=== PATIENT | male | born 1985 | race Caucasian/White ===

== ENCOUNTER 2016-08-04 13:32 | Inpatient (IN) | payer SELFPAY ==
[2016-08-04] MEDS ORDERED: hydrOXYzine HCL TAB* 50 MG PO ONE ×2 (14:09→19:41)
[2016-08-04 14:32] LABS: Urine Bilirubin Negative (Negative); Urine Glucose Negative (Negative); Urine Nitrite Negative (Negative)
[2016-08-04] MEDS ORDERED: hydrOXYzine HCL TAB* 25 MG ONE (14:44)
[2016-08-04 14:46] LABS: Benzodiazepine Urine Screen None Detected (None Detect)
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
[2016-08-04 15:09] LABS: Hematocrit 45 % (42-52); Hemoglobin 15.4 g/dl (14.0-18.0); Mean Corpuscular HGB Conc 34 g/dl (31-36); Mean Corpuscular Hemoglobin 30 pg (27-31); Mean Corpuscular Volume 88 fL (80-94); Mean Platelet Volume 8 um3 (7.4-10.4); Red Blood Count 5.13 10^6/ul (4.0-5.4); Red Cell Distribution Width 13 % (10.5-15); White Blood Count 10.5 10^3/ul (3.5-10.8)
[2016-08-04 16:10] LABS: ALT 31 U/L (7-52); AST 20 U/L (13-39); Albumin 4.6 g/dL (3.2-5.2); Alkaline Phosphatase 67 U/L (34-104); Anion Gap 11 mmol/L (2-11); BUN/Creatinine Ratio 18.5 (8-20); Blood Urea Nitrogen 22 mg/dL (6-24); CO2 Carbon Dioxide 22 mmol/L (22-32); Calcium 9.8 mg/dL (8.6-10.3); Chloride 103 mmol/L (101-111); EGFR Non-African American 72.3 (>60); Globulin 2.8 g/dL (2-4); Glucose 97 mg/dL (70-100); Potassium 4.2 mmol/L (3.5-5.0); Sodium 136 mmol/L (133-145); Total Protein 7.4 g/dL (6.4-8.9)
[2016-08-04 16:23] LABS: Acetaminophen < 15 mcg/mL; Alcohol < 10 mg/dL (<10); Salicylate < 2.50 mg/dL (<30)
[2016-08-04 16:29] LABS: TSH (Thyroid Stimulating Horm) 1.51 mcIU/mL (0.34-5.60)
[2016-08-04] MEDS ORDERED: Nicotine Inhaler* 10 MG AMP ONE ×2 (21:58→23:46)
[2016-08-04] MEDS ORDERED: Mouth Piece, Nicotine* 1 EACH CARTRIDGE ONE (21:58)
[2016-08-04] MEDS: Nicotine Inhaler* 10 MG AMP INH PRN (23:45)
[2016-08-05] MEDS ORDERED: Mouth Piece, Nicotine* 1 EACH CARTRIDGE INH SCH (00:02)
[2016-08-05] MEDS: hydrOXYzine HCL TAB* 50 MG PO PRN ×2 (08:37→22:23)
[2016-08-05] MEDS ORDERED: QUEtiapine TAB* 25 MG PO ONE (10:00)
[2016-08-05] MEDS ORDERED: LORazepam TAB(*) 1 MG PO ONE ×3 (10:00→21:00)
[2016-08-05] MEDS: Docusate CAP* 100 MG PO SCH ×2 (12:35→20:29)
[2016-08-05] MEDS: Gabapentin CAP(*) 300 MG PO SCH ×2 (12:35→20:29)
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
[2016-08-05] MEDS: Nicotine Inhaler* 10 MG AMP INH PRN (20:29)
[2016-08-05] MEDS ORDERED: QUEtiapine TAB* 25 MG PO SCH (21:00)
[2016-08-06] MEDS: Docusate CAP* 100 MG PO SCH ×2 (09:12→20:53)
[2016-08-06] MEDS: Gabapentin CAP(*) 300 MG PO SCH ×3 (09:12→20:53)
[2016-08-06] MEDS: hydrOXYzine HCL TAB* 50 MG PO PRN ×2 (10:23→18:09)
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
[2016-08-06] MEDS: Nicotine Inhaler* 10 MG AMP INH PRN (18:09)
[2016-08-07] MEDS: Gabapentin CAP(*) 300 MG PO SCH ×3 (08:13→20:52)
[2016-08-07] MEDS: Docusate CAP* 100 MG PO SCH ×2 (08:14→20:52)
[2016-08-07] MEDS: hydrOXYzine HCL TAB* 50 MG PO PRN ×3 (08:15→20:54)
[2016-08-07] MEDS: Nicotine Inhaler* 10 MG AMP INH PRN (16:37)
[2016-08-08] MEDS: Docusate CAP* 100 MG PO SCH ×2 (08:33→20:37)
[2016-08-08] MEDS: Gabapentin CAP(*) 300 MG PO SCH ×3 (08:33→20:25)
[2016-08-08] MEDS: Nicotine Inhaler* 10 MG AMP INH PRN ×2 (09:58→17:02)
--- NOTE | 2016-08-08 18:14 | PN ---
Subjective - Subjective Service Type: 25545 Hosp care 15 min low complexity Subjective: Jourdan reports that he hasbeen doing well and denies any psychiatric or physical health problems including cravings for drugs. Says he is all for rehab. Objective - Appearance Appearance: Well Developed/Nourished Dysmorphic Features: No Hygiene: Normal Grooming: Well Kept - Behavior Psychomotor Activities: Normal Exhibits Abnormal Movement: No - Attitude and Relatedness Attitude and Relatedness: Appropriate Eye Contact: Good - Speech Quality: Unpressured Latencies: Normal Quantity: Appropriate - Mood Patient's Decription of Mood: "Great" - Affect Observed Affect: Non-labile - Thought Process Patient's Thought Process: Coherent, Goal Directed Thought Content: No Passive Wish, No Suicidal Planning, No Homicidal Ideation, No Paranoid Ideation - Sensorium Experiencing Hallucinations: No, Sensorium is Clear Type of Hallucinations: Visual: No, Auditory: No, Command: No - Level of Consciousness Level of Consciousness: Alert Orientation: Yes Intact, Yes Orientated to Time, Yes Orientated to Place, Yes Orientated to Person - Impulse Control Impulse Control: Intact - Insight and Judgement Insight and Judgement: Good - Group Participation Particating in Group Activities: Yes - Medication Management Medication Management Adherence: Yes Assessment - Assessment Merits Inpatient Hospitalization: Pending Safe DC Plan Inpatient DSM-IV Dx: 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 Alcohol use disorder with induced mood symptoms and mild withdrawal. Plan - Plan Treatment Plan: Name: JOURDAN FORBES Birthdate: 1985 [id number] Continued Medication Management: Continue Outpt Medication Medications: Current Medications Device (Nicotine Mouth Piece*) 1 each INH .[facility] Last Admin: 08/05/16 20:29 Dose: 1 each Diphenhydramine HCl (Benadryl Po*) 50 mg PO BEDTIME PRN PRN Reason: INSOMNIA Docusate Sodium (Colace Cap*) 100 mg PO BID [facility] Last Admin: 08/08/16 08:33 Dose: 100 mg Gabapentin (Neurontin Cap(*)) 300 mg PO TID [facility] Last Admin: 08/08/16 14:01 Dose: 300 mg Hydroxyzine HCl (Atarax Tab*) 50 mg PO Q6H PRN PRN Reason: NOT SPECIFIED Last Admin: 08/07/16 20:54 Dose: 50 mg Nicotine (Nicotine Inhaler*) 10 mg INH Q2H PRN PRN Reason: CRAVING Last Admin: 08/08/16 17:02 Dose: 10 mg - Discharge Plan Discharge Plan: Drug/Alcohol Rehab
--- NOTE | 2016-08-09 07:44 | PN ---
Subjective - Subjective Service Type: 04169 Hosp care 15 min low complexity Subjective: Jourdan reports "uplifting mood" and feels "Strong." Says anxiety is controlled with gabapentin and he asks to continue it. He said he remains committed to going to rehab - he has expressed uncertainty as to the expected result, but is open to try. Objective - Appearance Appearance: Well Developed/Nourished Dysmorphic Features: Yes Hygiene: Normal Grooming: Well Kept - Behavior Psychomotor Activities: Normal - Attitude and Relatedness Attitude and Relatedness: Cooperative Eye Contact: Good - Speech Quality: Unpressured Latencies: Normal Quantity: Terse - Mood Patient's Decription of Mood: "Good" - Affect Observed Affect: Non-labile Affect Consistent with: Euthymia - Thought Process Patient's Thought Process: Coherent, Goal Directed Thought Content: No Passive Wish, No Suicidal Planning, No Homicidal Ideation, No Paranoid Ideation - Sensorium Experiencing Hallucinations: No, Sensorium is Clear - Level of Consciousness Level of Consciousness: Alert - Impulse Control Impulse Control: Intact - Insight and Judgement Insight and Judgement: Good Assessment - Assessment Merits Inpatient Hospitalization: To Initiate Treatment, For Ongoing Evaluation , Consolidate Improvements, For Discharge Planning, Pending Safe DC Plan Inpatient DSM-IV Dx: 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 Alcohol use disorder with induced mood symptoms and mild withdrawal. Clinical Impression: 31-year-old, unemployed, undomiciled male with a history of chronic cocaine and alcohol dependence, previous psychiatric hospitalizations, violence and incarceration. He presented with apparent cocaine induced psychosis, with recent paranoid ideation, and reactive preparations for violence. Stabilized here. Clinically improved with cessation of active psychosis and absence of ongoing ideas of harming himself or others. His psychosis appears to have been substance induced, and it cleared rapidly. It put him in a high risk state, and favorably he is open to the idea of treatment and rehab. Medication management will involve gabapentin off label for anxiety and subacute alcohol withdrawal. Disposition plans rehab. Plan - Plan Treatment Plan: Name: JOURDAN FORBES Birthdate: 1985 [id number] Continued Medication Management: Start Medication Medications: Current Medications Device (Nicotine Mouth Piece*) 1 each INH .[facility] Last Admin: 08/05/16 20:29 Dose: 1 each Diphenhydramine HCl (Benadryl Po*) 50 mg PO BEDTIME PRN PRN Reason: INSOMNIA Docusate Sodium (Colace Cap*) 100 mg PO BID [facility] Last Admin: 08/08/16 20:37 Dose: Not Given Gabapentin (Neurontin Cap(*)) 300 mg PO TID [facility] Last Admin: 08/08/16 20:25 Dose: 300 mg Hydroxyzine HCl (Atarax Tab*) 50 mg PO Q6H PRN PRN Reason: NOT SPECIFIED Last Admin: 08/07/16 20:54 Dose: 50 mg Nicotine (Nicotine Inhaler*) 10 mg INH Q2H PRN PRN Reason: CRAVING Last Admin: 08/08/16 17:02 Dose: 10 mg - Discharge Plan Discharge Plan: Drug/Alcohol Rehab
[2016-08-09] MEDS: Gabapentin CAP(*) 300 MG PO SCH ×3 (08:25→20:33)
[2016-08-09] MEDS: Docusate CAP* 100 MG PO SCH ×2 (08:25→20:34)
[2016-08-09] MEDS: Nicotine Inhaler* 10 MG AMP INH PRN ×4 (10:11→20:43)
--- NOTE | 2016-08-09 11:11 | PN ---
[facility]: Group Therapy Note - Service Type Service Type: [id number] Group Psychotherapy - Cognitive Behavioral Group Therapy ( CBT):Patient was attentive and participatory in CBT programming this morning, and remained in good behavioral control. Patient expressed positive insights regarding relevant treatment interventions and goals.
[2016-08-09] MEDS: diPHENhydraMINE PO* 50 MG PO PRN (22:17)
[2016-08-10] MEDS: Gabapentin CAP(*) 300 MG PO SCH ×3 (08:22→20:53)
[2016-08-10] MEDS: Docusate CAP* 100 MG PO SCH ×2 (08:48→20:53)
--- NOTE | 2016-08-10 10:47 | PN ---
Subjective - Subjective Service Type: 53632 Hosp care 15 min low complexity Subjective: Jourdan says he feels ready to engage in rehab - "nervous because (he has) never been clean before." He is pleased to hear about bed tomorrow. Denies distress, affirms he is safe. Says gabapentin really helps, wants to continue it. Objective - Appearance Appearance: Healthy Appearing Hygiene: Normal Grooming: Well Kept - Behavior Psychomotor Activities: Normal - Attitude and Relatedness Attitude and Relatedness: Cooperative Eye Contact: Good - Speech Quality: Unpressured Latencies: Normal Quantity: Appropriate - Mood Patient's Decription of Mood: "Anxious" - Affect Observed Affect: Non-labile Affect Consistent with: Euthymia - Thought Process Patient's Thought Process: Coherent, Disorganized Thought Content: No Passive Wish, No Suicidal Planning, No Homicidal Ideation, No Paranoid Ideation - Sensorium Experiencing Hallucinations: No, Sensorium is Clear - Level of Consciousness Level of Consciousness: Alert - Impulse Control Impulse Control: Intact - Insight and Judgement Insight and Judgement: Fair Assessment - Assessment Merits Inpatient Hospitalization: Consolidate Improvements, For Discharge Planning Inpatient DSM-IV Dx: 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 Alcohol use disorder with induced mood symptoms and mild withdrawal. Clinical Impression: 31-year-old, unemployed, undomiciled male with a history of chronic cocaine and alcohol dependence, previous psychiatric hospitalizations, violence and incarceration. He presented with apparent cocaine induced psychosis, with recent paranoid ideation, and reactive preparations for violence. Stabilized here. Clinically improved with sustained cessation of active psychosis and absence of ongoing ideas of harming himself or others. His psychosis was substance induced, and it cleared rapidly. It put him in a high risk state, and favorably he is open to the idea of treatment and rehab. Medication management will involve gabapentin off label for anxiety and subacute alcohol withdrawal. Disposition plans rehab. tomorrow - pt. accepted at [facility]. Plan - Plan Treatment Plan: Name: JOURDAN FORBES Birthdate: 1985 [id number] Continued Medication Management: Start Medication Medications: Current Medications Device (Nicotine Mouth Piece*) 1 each INH .CARTRIDGE MARIA GUADALUPE Last Admin: 08/05/16 20:29 Dose: 1 each Diphenhydramine HCl (Benadryl Po*) 50 mg PO BEDTIME PRN PRN Reason: INSOMNIA Last Admin: 08/09/16 22:17 Dose: 50 mg Docusate Sodium (Colace Cap*) 100 mg PO BID MARIA GUADALUPE Last Admin: 08/10/16 08:48 Dose: Not Given Gabapentin (Neurontin Cap(*)) 300 mg PO TID MARIA GUADALUPE Last Admin: 08/10/16 08:22 Dose: 300 mg Hydroxyzine HCl (Atarax Tab*) 50 mg PO Q6H PRN PRN Reason: NOT SPECIFIED Last Admin: 08/07/16 20:54 Dose: 50 mg Nicotine (Nicotine Inhaler*) 10 mg INH Q2H PRN PRN Reason: CRAVING Last Admin: 08/09/16 20:43 Dose: 10 mg - Discharge Plan Discharge Plan: Drug/Alcohol Rehab
--- NOTE | 2016-08-10 11:25 | PN ---
[facility]: Group Therapy Note - Service Type Service Type: 11334 Group Psychotherapy - Cognitive Behavioral Group Therapy ( CBT):Patient was attentive and participatory in CBT programming this morning, and remained in good behavioral control. Patient expressed positive insights regarding relevant treatment interventions and goals.
[2016-08-10] MEDS: Nicotine Inhaler* 10 MG AMP INH PRN ×3 (16:01→22:04)
[2016-08-11] MEDS: diPHENhydraMINE PO* 50 MG PO PRN (00:45)
--- NOTE | 2016-08-11 08:00 | DS ---
Subjective - Subjective Service Types: 82913 [facility] Day Mgmt simple under 30 min Discharge Date: 08/11/16 Subjective: Jelani expressed readiness for discharge and rehab. Remains committed to sobriety and counseling. Denies distress, setbacks, perceptual problems, paranoid concerns. Makes no delusional comments. Affirms he is safe unto himself and others, and acknowledge he "absolutely" was not in his intoxication and paranoia. Objective - Appearance Appearance: Healthy Appearing Hygiene: Normal Grooming: Well Kept - Behavior Psychomotor Activities: Normal - Attitude and Relatedness Attitude and Relatedness: Cooperative Eye Contact: Good - Speech Quality: Unpressured Latencies: Normal Quantity: Appropriate - Mood Patient's Decription of Mood: "Good" - Affect Observed Affect: Non-labile Affect Consistent with: Euthymia - Thought Process Patient's Thought Process: Coherent Thought Content: No Passive Wish, No Suicidal Planning, No Homicidal Ideation, No Paranoid Ideation - Sensorium Experiencing Hallucinations: No, Sensorium is Clear - Level of Consciousness Level of Consciousness: Alert - Impulse Control Impulse Control: Intact - Insight and Judgement Insight and Judgement: Good Treatment Course & Assessment Clinical Course & Impression: 31-year-old, unemployed, undomiciled male with a history of chronic cocaine and alcohol dependence, previous psychiatric hospitalizations, violence and incarceration. He presented with apparent cocaine induced psychosis, with recent paranoid ideation, and reactive preparations for violence. 08/11/16 Clear for release - bed to bed taxi transfer to rehabilitation facility ([facility]). Jelani rapidly stabilized here. Clinically, he had dramatic, speedy and complete clinically improvement. He had sustained cessation of all active psychosis and sustained absence of ongoing ideas of harming himself or others. His psychosis was clearly substance induced, and it resolved without direct treatment (had one 50mg dose Seroquel only). His intoxication and resulting psychosis him in a high risk state, and favorably he was open to the idea of treatment and rehab. Medication management involve gabapentin off label for anxiety and subacute alcohol withdrawal; Benadryl if needed for insomnia, nicotine replacement, and colace for constipation. Jelani was accepted at [facility], remained motivated for it, and is medically and psychiatrically appropriate for that treatment setting. Risk concern centered on violence risk with intoxication, psychosis, preparations, and impairment. Violence risk is drastically reduced and assessed as low acutely based on patient's lack of acute impairment, minimal symptom burden and observed benign behavior and ideation. 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 Substance relapse could rapidly and significantly increase acute risk. 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 Alcohol use disorder with induced mood symptoms and mild withdrawal. Discharge Planning - Discharge Planning Discharge Plan: Drug/Alcohol Rehab Recommendations for Continuing Care: Medication Management, Psychotherapy, Substance Abuse Counseling Medications: Current Medications Diphenhydramine HCl (Benadryl Po*) 50 mg PO BEDTIME PRN PRN Reason: INSOMNIA Last Admin: 08/11/16 00:45 Dose: 50 mg Docusate Sodium (Colace Cap*) 100 mg PO BID [facility] Last Admin: 08/10/16 20:53 Dose: 100 mg Gabapentin (Neurontin Cap(*)) 300 mg PO TID [facility] Last Admin: 08/10/16 20:53 Dose: 300 mg Nicotine (Nicotine Inhaler*) 10 mg INH Q2H PRN PRN Reason: CRAVING Last Admin: 08/10/16 22:04 Dose: 10 mg Discharge Planning: Prescriptions provided for discharge [] Yes [x] No Follow up care details as per social work arrangements. Patient response to discharge plan: [x] eager for discharge [] agreeable with discharge plan [] ambivalent about discharge [] disagrees with discharge today
[2016-08-11] MEDS: Gabapentin CAP(*) 300 MG PO SCH (08:06)
[2016-08-11] MEDS: Docusate CAP* 100 MG PO SCH (08:08)
[2016-08-11 08:24] VITALS: BP 140/65
[2016-08-11] MEDS: Nicotine Inhaler* 10 MG AMP INH PRN (08:55)
== END 2016-08-11 10:45 | DRG 897 ==
LOC: ED 13:32 → BSU 08-05 00:01
PROVIDERS: ADMIT Psychiatry & Neurology Psychiatry; ATTEND Psychiatry & Neurology Psychiatry
DX: F14.150 Cocaine abuse with cocaine-induced psychotic disorder with delusions (principal); F10.239 Alcohol dependence with withdrawal, unspecified; F10.24 Alcohol dependence with alcohol-induced mood disorder
CPT/HCPCS: 36415; 80053; 80307; 80320; 80329; 81003; 84443; 85025; 90853; 99222; 99231; 99238; 99406; A9270-GY; G0480

== ENCOUNTER 2017-02-01 17:12 | Inpatient (IN) | payer MEDICAID ==
[2017-02-01 19:04] LABS: Hematocrit 43 % (42-52); Hemoglobin 14.4 g/dl (14.0-18.0); Mean Corpuscular HGB Conc 34 g/dl (31-36); Mean Corpuscular Hemoglobin 30 pg (27-31); Mean Corpuscular Volume 90 fL (80-94); Mean Platelet Volume 9 um3 (7.4-10.4); Red Blood Count 4.75 10^6/ul (4.0-5.4); Red Cell Distribution Width 13 % (10.5-15); White Blood Count 8.6 10^3/ul (3.5-10.8)
[2017-02-01 19:08] LABS: Urine Bilirubin Negative (Negative); Urine Glucose Negative (Negative); Urine Nitrite Negative (Negative)
[2017-02-01 19:15] LABS: ALT 21 U/L (7-52); AST 20 U/L (13-39); Albumin 4.6 g/dL (3.2-5.2); Alkaline Phosphatase 73 U/L (34-104); Anion Gap 4 mmol/L (2-11); BUN/Creatinine Ratio 14.7 (8-20); Blood Urea Nitrogen 17 mg/dL (6-24); CO2 Carbon Dioxide 30 mmol/L (22-32); Calcium 9.2 mg/dL (8.6-10.3); Chloride 105 mmol/L (101-111); EGFR African American 95.7 (>60); EGFR Non-African American 74.4 (>60); Globulin 2.7 g/dL (2-4); Glucose 87 mg/dL (70-100); Potassium 4.1 mmol/L (3.5-5.0); Sodium 139 mmol/L (133-145); Total Protein 7.3 g/dL (6.4-8.9)
[2017-02-01 19:19] LABS: Acetaminophen < 15 mcg/mL; Alcohol < 10 mg/dL (<10); Salicylate < 2.50 mg/dL (<30)
[2017-02-01 19:25] LABS: Benzodiazepine Urine Screen None Detected (None Detect)
[2017-02-01 19:28] LABS: TSH (Thyroid Stimulating Horm) 1.46 mcIU/mL (0.34-5.60)
[2017-02-01] MEDS ORDERED: Nicotine Inhaler* 10 MG AMP INH ONE (20:24)
[2017-02-01] MEDS ORDERED: Mouth Piece, Nicotine* 1 EACH CARTRIDGE ONE (20:26)
[2017-02-01] MEDS ORDERED: Nicotine Inhaler* 10 MG AMP ONE (20:26)
--- NOTE | 2017-02-01 23:11 | ED ---
Kimberlyn Collins Seung-Jae, scribed for Franklin Martínez MD on 02/01/17 at 1925 . Psychiatric Complaint - HPI Summary HPI Summary: Pt is a 31 y/o M comes to the ED p/w fear and anxiety. He states that he is worried of being followed by certain people he believe to be related to the government. Pt states that "men were in cars with tinted windows" watching over him. He also states that he saw a few weeks ago men who "stood in front of a gas pump at a station". Pt also notes that he saw "cameras put in the wrong places" that were supposedly watching him. He states that he feels safe s/p arrival to ED. Pt is currently off his medications. PMhx anxiety, bipolar disorder. - History Of Current Complaint Chief Complaint: EDMentalHealth Time Seen by Provider: 02/01/17 18:31 Hx Obtained From: Patient Onset/Duration: Gradual Onset, Lasting Weeks, Still Present Severity Initially: Moderate Severity Currently: None Character: Fearful, Anxious Aggravating Factor(s): Nothing Alleviating Factor(s): Other - feels safer after coming to ED Associated Signs And Symptoms: Positive: Negative Related History: Positive For: Prior Psychiatric Issues - Anxiety, bipolar disorder - Allergies/Home Medications Allergies/Adverse Reactions: Allergies Allergy/AdvReac Type Severity Reaction Status Date / Time No Known Allergies Allergy Verified 08/07/16 16:02 PMH/Surg Hx/FS Hx/Imm Hx Previously Healthy: No Endocrine/Hematology History: Denies: Hx Thyroid Disease, Hx Anemia Respiratory History: Denies: Hx Asthma, Hx Chronic Bronchitis, Hx Chronic Obstructive Pulmonary Disease (COPD), Hx Cystic Fibrosis, Hx Lung Cancer, Hx Pleural Effusion, Hx Pneumonia, Hx Pulmonary Edema, Hx Pulmonary Embolism, Hx Seasonal Allergies, Hx Sleep Apnea, Other Respiratory Problems/Disorders GI History: Denies: Hx Cirrhosis, Hx Crohn's Disease, Hx Diverticulosis, Hx Gall Bladder Disease, Hx Gastroesophageal Reflux Disease, Hx Gastrointestinal Bleed, Hx Hiatal Hernia, Hx Irritable Bowel, Hx Jaundice, Hx Obstructive Bowel, Hx Ileostomy, Hx Pyloric Stenosis, Hx Ulcer, Other GI Disorders History: Denies: Hx Acute Renal Failure, Hx Benign Prostatic Hyperplasia, Hx Chronic Renal Failure, Hx Dialysis, Hx Kidney Infection, Hx Kidney Stones, Other Problems/Disorders Musculoskeletal History: Denies: Hx Arthritis, Hx Back Problems, Hx Bursitis, Hx Congenital Bone Abnormalities, Hx Fibromyalgia, Hx Gout, Hx Orthopedic Injury, Hx Osteoporosis, Hx Scoliosis, Hx Tendonitis, Other Musculoskeletal History Psychiatric History: Reports: Hx Anxiety, Hx Post Traumatic Stress Disorder, Hx Inpatient Treatment, Hx Bipolar Disorder, Hx of Violent Episodes Against Others , Hx Substance Abuse - crack cocaine, Other Psychiatric Issues/Disorders - admitted for MH issues in the past; not clear of dx Denies: Hx Eating Disorder, Hx Suicide Attempt Infectious Disease History: No Infectious Disease History: Denies: Hx Clostridium Difficile, Hx Hepatitis, Hx Human Immunodeficiency Virus (HIV), Hx of Known/Suspected MRSA, Hx Tuberculosis, Traveled Outside the [place] in Last 30 Days - Family History Known Family History: Positive: Other - pt's sister was suicidal, has depression ,anxiety, and bipolar disease. - Social History Alcohol Use: Daily Alcohol Amount: 2 beers today Hx Substance Use: Yes Substance Use Type: Reports: Cocaine Substance Use Comment - Amount & Last Used: last used 2 days ago Smoking Status (MU): Current Every Day Smoker Type: Cigarettes Review of Systems Negative: Fever Positive: Anxious, Other - fearful of being followed by people All Other Systems Reviewed And Are Negative: Yes Physical Exam Triage Information Reviewed: Yes Vital Signs On Initial Exam: Initial Vitals Temp Pulse Resp BP Pulse Ox 97.7 F 70 17 124/77 98 02/01/17 17:35 02/01/17 17:35 02/01/17 17:35 02/01/17 17:35 02/01/17 17:35 Vital Signs Reviewed: Yes Appearance: Positive: Well-Appearing, No Pain Distress Skin: Positive: Warm, Skin Color Reflects Adequate Perfusion, Dry Head/Face: Positive: Normal Head/Face Inspection Eyes: Positive: Normal ENT: Positive: Normal ENT inspection Neck: Positive: Supple, Nontender Respiratory/Lung Sounds: Positive: Clear to Auscultation, Breath Sounds Present Cardiovascular: Positive: RRR Abdomen Description: Positive: Nontender, Soft Bowel Sounds: Positive: Present Musculoskeletal: Positive: Normal Neurological: Positive: Normal Psychiatric: Positive: Normal - [place] Coma Scale Coma Scale Total: 15 Diagnostics - Vital Signs Vital Signs Temp Pulse Resp BP Pulse Ox 02/01/17 18:42 97.7 F 70 17 124/77 98 02/01/17 17:35 97.7 F 70 17 124/77 98 - Laboratory Lab Results: Lab Results 02/01/17 02/01/17 02/01/17 Range/Units 18:25 18:25 18:33 WBC 8.6 (3.5-10.8) 10^3/ul RBC 4.75 (4.0-5.4) 10^6/ul Hgb 14.4 (14.0-18.0) g/dl Hct 43 (42-52) % MCV 90 (80-94) fL MCH 30 (27-31) pg MCHC 34 (31-36) g/dl RDW 13 (10.5-15) % Plt Count 276 (150-450) 10^3/ul MPV 9 (7.4-10.4) um3 Neut % (Auto) 60.7 (38-83) % Lymph % (Auto) 29.3 (25-47) % Isabella % (Auto) 6.2 (1-9) % Eos % (Auto) 2.8 (0-6) % Baso % (Auto) 1.0 (0-2) % Absolute Neuts (auto) 5.2 (1.5-7.7) 10^3/ul Absolute Lymphs (auto) 2.5 (1.0-4.8) 10^3/ul Absolute Monos (auto) 0.5 (0-0.8) 10^3/ul Absolute Eos (auto) 0.2 (0-0.6) 10^3/ul Absolute Basos (auto) 0.1 (0-0.2) 10^3/ul Absolute Nucleated RBC 0.01 10^3/ul Nucleated RBC % 0.1 Sodium (133-145) mmol/L Potassium (3.5-5.0) mmol/L Chloride (101-111) mmol/L Carbon Dioxide (22-32) mmol/L Anion Gap (2-11) mmol/L BUN (6-24) mg/dL Creatinine (0.67-1.17) mg/dL Est GFR ( Amer) (>60) Est GFR (Non-Af Amer) (>60) BUN/Creatinine Ratio (8-20) Glucose (70-100) mg/dL Calcium (8.6-10.3) mg/dL Total Bilirubin (0.2-1.0) mg/dL AST (13-39) U/L ALT (7-52) U/L Alkaline Phosphatase (34-104) U/L Total Protein (6.4-8.9) g/dL Albumin (3.2-5.2) g/dL Globulin (2-4) g/dL Albumin/Globulin Ratio (1-3) TSH (0.34-5.60) mcIU/mL Urine Color Yellow Urine Appearance Clear Urine pH 5.0 (5-9) Ur Specific [place] 1.028 (1.010-1.030) Urine Protein Negative (Negative) Urine Ketones Negative (Negative) Urine Blood Negative (Negative) Urine Nitrate Negative (Negative) Urine Bilirubin Negative (Negative) Urine Urobilinogen Negative (Negative) Ur Leukocyte Esterase Negative (Negative) Urine Glucose Negative (Negative) Salicylates (<30) mg/dL Urine Opiates Screen None detected (None Detect) Acetaminophen mcg/mL Ur Barbiturates Screen None detected (None Detect) Ur Phencyclidine Scrn None detected (None Detect) Ur Amphetamines Screen None detected (None Detect) U Benzodiazepines Scrn None detected (None Detect) Urine Cocaine Screen Presumptive positive H (None Detect) U Cannabinoids Screen None detected (None Detect) Serum Alcohol (<10) mg/dL 02/01/17 Range/Units 18:33 WBC (3.5-10.8) 10^3/ul RBC (4.0-5.4) 10^6/ul Hgb (14.0-18.0) g/dl Hct (42-52) % MCV (80-94) fL MCH (27-31) pg MCHC (31-36) g/dl RDW (10.5-15) % Plt Count (150-450) 10^3/ul MPV (7.4-10.4) um3 Neut % (Auto) (38-83) % Lymph % (Auto) (25-47) % Isabella % (Auto) (1-9) % Eos % (Auto) (0-6) % Baso % (Auto) (0-2) % Absolute Neuts (auto) (1.5-7.7) 10^3/ul Absolute Lymphs (auto) (1.0-4.8) 10^3/ul Absolute Monos (auto) (0-0.8) 10^3/ul Absolute Eos (auto) (0-0.6) 10^3/ul Absolute Basos (auto) (0-0.2) 10^3/ul Absolute Nucleated RBC 10^3/ul Nucleated RBC % Sodium 139 (133-145) mmol/L Potassium 4.1 (3.5-5.0) mmol/L Chloride 105 (101-111) mmol/L Carbon Dioxide 30 (22-32) mmol/L Anion Gap 4 (2-11) mmol/L BUN 17 (6-24) mg/dL Creatinine 1.16 (0.67-1.17) mg/dL Est GFR ( Amer) 95.7 (>60) Est GFR (Non-Af Amer) 74.4 (>60) BUN/Creatinine Ratio 14.7 (8-20) Glucose 87 (70-100) mg/dL Calcium 9.2 (8.6-10.3) mg/dL Total Bilirubin 0.60 (0.2-1.0) mg/dL AST 20 (13-39) U/L ALT 21 (7-52) U/L Alkaline Phosphatase 73 (34-104) U/L Total Protein 7.3 (6.4-8.9) g/dL Albumin 4.6 (3.2-5.2) g/dL Globulin 2.7 (2-4) g/dL Albumin/Globulin Ratio 1.7 (1-3) TSH 1.46 (0.34-5.60) mcIU/mL Urine Color Urine Appearance Urine pH (5-9) Ur Specific [place] (1.010-1.030) Urine Protein (Negative) Urine Ketones (Negative) Urine Blood (Negative) Urine Nitrate (Negative) Urine Bilirubin (Negative) Urine Urobilinogen (Negative) Ur Leukocyte Esterase (Negative) Urine Glucose (Negative) Salicylates < 2.50 (<30) mg/dL Urine Opiates Screen (None Detect) Acetaminophen < 15 mcg/mL Ur Barbiturates Screen (None Detect) Ur Phencyclidine Scrn (None Detect) Ur Amphetamines Screen (None Detect) U Benzodiazepines Scrn (None Detect) Urine Cocaine Screen (None Detect) U Cannabinoids Screen (None Detect) Serum Alcohol < 10 (<10) mg/dL Result Diagrams: 02/01/17 18:33 02/01/17 18:33 Lab Statement: Any lab studies that have been ordered have been reviewed, and results considered in the medical decision making process. Course/Dx - Course Course Of Treatment: Mr. Swanson came in with delusions about government persecution. While here he stated that he wanted to get a gun and shoot some government agents. We are awaiting evaluation by the psychiatrist at this time. - Differential Dx/Clinical Impression Provider Diagnosis: Psychosis Discharge - Discharge Plan Condition: Stable Disposition: OTHER Discharge Disposition Comment: Pt will be signed out, pending dispo, awaiting [facility] Patient Education Materials: Cocaine Abuse (ED) Referrals: Non Staff,Doctor [Primary Care Provider] - The documentation as recorded by the Kimberlyn cardona Seung-Jae accurately reflects the service I personally performed and the decisions made by me, Franklin Martínez MD.
[2017-02-01] MEDS ORDERED: LORazepam TAB(*) 1 MG PO ONE (23:34)
[2017-02-01] MEDS ORDERED: LORazepam TAB(*) 1 MG ONE (23:35)
[2017-02-02] MEDS ORDERED: Nicotine GUM* 2 MG PO PRN (10:57)
[2017-02-02] MEDS ORDERED: Acetaminophen TAB* 325 MG PO PRN (10:57)
[2017-02-02] MEDS ORDERED: Al Hydrox/Mg Hydrox/Simet LIQ* 30 ML UDC PO PRN (10:57)
[2017-02-02] MEDS: Vitamin THERAPEUTIC TAB PO SCH (11:46)
[2017-02-02] MEDS: Nicotine Inhaler* 10 MG AMP INH PRN (11:47)
[2017-02-02] MEDS: hydrOXYzine HCL TAB* 50 MG PO PRN (11:48)
[2017-02-02] MEDS ORDERED: Mouth Piece, Nicotine* 1 EACH CARTRIDGE INH ONE (12:00)
[2017-02-02] MEDS: Gabapentin CAP(*) 300 MG PO SCH ×2 (13:57→20:59)
--- NOTE | 2017-02-02 19:27 | HP ---
HISTORY AND PHYSICAL: DATE OF ADMISSION: 02/02/17 ATTENDING PHYSICIAN: Larry Juarez MD * (DICTATED BY DAVID COHN NP) JUSTIFICATION FOR ADMISSION: Psychosis with violent ideation and in need of psychiatric stabilization before attending substance use rehab. DEMOGRAPHICS: Jelani is a 31-year-old white male, unemployed, undomiciled with a history of cocaine and alcohol dependence, previous psychiatric hospitalizations , psychosis, violence and incarceration. He was admitted to the mental health unit after voluntarily presenting to the emergency department due to concern about thoughts of killing others. CC: "my paranoia and my bipolar" HISTORY OF PRESENT ILLNESS: Jelani presented voluntarily to the ED with paranoia , believing that the government was watching him and is going to send someone to shoot him or stab him. While in the ED, he was observed to be hypervigilant and expressed concern that his phone was tapped. The patient reports he went off of his medications approximately 4 months ago and has been abusing cocaine and alcohol. The patient is known to this unit as he was admitted in July of this year with a similar presentation. From there, he was referred to [facility] in [place] for substance use rehab. He was there for 2 weeks as this is what insurance allowed. From there, he was transferred to a [place], but was not successful there and did not want to stay. He lived in a homeless penitentiary and began using cocaine and alcohol again. He moved to [place] for a short time and then returned to [place] where his mother lives. 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 While in [place], he suddenly learned there was bench warrant for his arrest in [facility]. He went to [place] to take care of this and then failed to return to [place] due to paranoia and substance use. Today after admission to the unit, I meet with Jelani, I find him lying down on his bed. He is lethargic, but able to rouse. He is agreeable to meet with me in the milieu in a somewhat private area. Jelani reports he is here because of "my paranoia and my bipolar." He is cooperative with interview, but clearly uncomfortable and would prefer to go back to bed. He is able to give me information that I asked for. Jelani states that he has been hearing vague hallucinations, "all different types of stuff." He says that he has visual hallucinations, he sees people that "I know ain't there." He endorses thought broadcasting and states that that is "a big one" in regards to symptoms. As stated above, he presents with hypervigilance, paranoia. He reports poor sleep and being awake up to a few days at a time. He reports decrease in appetite. He endorses isolation from people and also endorses fear that they can read his thoughts. Jelani endorses violent ideation as recent as yesterday. He is unable to identify specific people, these are random thoughts. He denies having any resentment or active thoughts of how to harm people. He states he is concerned about this type of thinking. He denies he has been violent in the recent past. Jelani endorses suicidality. He states that last week he "shot heroin, trying to kill myself." He reports that he does not use heroin otherwise. His drug of choice is cocaine and he uses this intranasally; his last use was approximately 2 days ago. He reports he has not slept for approximately 2 days until being in the emergency department. He denies marijuana use. He reports alcohol use varies and endorses binge drinking. He is unable to clarify further. His alcohol screen in the emergency department was negative. His urine toxicology was positive for cocaine, negative for other substances that were tested. Blood tests were negative for salicylates or acetaminophen. Jelani is appearing to be sincere in his request for help with both substance use and bipolar disorder. He endorses periods of depression as stated above as recent as last week. He presented as depressed and dysphoric. He endorses helplessness and hopelessness. He reports that he is hoping to be referred to a dual diagnosis substance use facility. PAST PSYCHIATRIC HISTORY: This is Jelani's second admission to this unit, first one being in July of this year. According to previous H&P, he was hospitalized 3 times in [place] due to substance use and police escorts to the emergency room. He reports being diagnosed with bipolar disorder approximately a year ago and he recalls that gabapentin was very helpful with both anxiety and alcohol withdrawal and cravings. He recalls that he has been treated with Zyprexa for bipolar disorder with good effect. As stated above, Jelani was treated in [facility] after admission to this facility in July of this year. According to prior records, he started drinking alcohol at age 16 which led to cocaine use. He has had numerous sequelae related to his substance use including leaving high school and being incarcerated for armed robbery. Jelani has tried pills, amphetamines and other various illicit substances. As stated above, his primary drug of choice is cocaine. He denies methamphetamine use. PAST MEDICAL HISTORY: Denies. He reports he has a "lump on his tailbone" and that it is sometimes painful. He declines offer for examination at this time and prefers to defer this until tomorrow after he has had some sleep. MEDICATIONS: He is not on current medications from any outpatient providers. ALLERGIES: No known allergies. FAMILY PSYCHIATRIC HISTORY: Step sister with bipolar disorder and suicide gestures. ABUSE/TRAUMA HISTORY: He denies. LEGAL HISTORY: 5 years in correction for armed robbery, released in 2011. SOCIAL HISTORY: Jelani grew up in [place]. He primarily has lived with his mother. He has 2 step siblings. He does not have contact with anyone in his family other than his mother. He is currently homeless. He left high school and 10th grade and got his GED. 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 He is not currently dating, single, no children. REVIEW OF SYSTEMS: He reports a lump on his tailbone area. PHYSICAL EXAMINATION VITAL SIGNS: Height and weight, 5 feet 11 inches and 200 pounds. Most recent vital signs today, blood pressure 104/72, pulse of 62, respiration rate of 16, temperature 98.5, O2 sat of 100. Physical examination to be completed tomorrow per patient request. MENTAL STATUS EXAM: Jelani is a tall, white male with muscular build, appears stated age. He is casually groomed. Hair is short with a buzz cut. He is wearing long sleeve shirt and sweat pants. He appears stated age. He is alert and oriented x3. His posture is slumped. His head is down. His eye contact is fair. Speech is mumbled. His concentration is poor. His memory is 2/3. Mood is "tired." Affect is restricted. Thought is logical, coherent, some poverty noted. Thought content is positive for auditory and visual hallucinations, paranoia and thought broadcasting. He denies SI, HI, or at this time. His insight is good and that he is seeking treatment voluntarily. Judgment is poor. Impulse control poor. Fund of knowledge fair. ADMISSION LABORATORY STUDIES: CBC normal. CMP normal. TSH and liver enzymes normal. UA was normal. Toxicology positive for cocaine,all other substances are negative. IMPRESSION: Jelani is a 31-year-old male with acute cocaine and alcohol abuse disorder. In reviewing his history, he likely had an onset of bipolar disorder in his early teens, although this was not diagnosed until recently. This has manifested in substance use and legal consequences. Jelani is agreeable to treatment on the mental health unit for psychiatric stabilization with a referral to inpatient substance use treatment. We hope to pursue a dual diagnosis program. He has strong support from his mother, although she lives in [place]. He requires emergency hospitalization due to serous risk for harm for himself and others. ADMISSION DIAGNOSES: [place] I: Cocaine use disorder, severe with induced psychotic symptoms and mood symptoms. Alcohol use disorder with withdrawal and induced mood symptoms, unspecified bipolar disorder. [place] II: Deferred. [place] III: Deferred. [place] IV: Severe psychosocial stressors related to housing financial strain, social isolation and other stressors related to substance use. [place] V: 30. TREATMENT PLAN: Admit to the psychiatric unit. Code status is full, safety checks every 15-minute intervals. Initiate comprehensive group, milieu and individual psychotherapy. Medication management will involve gabapentin 300 mg t.i.d. for off-label use for alcohol withdrawal and cravings, along with benefit for anxiety. We will add olanzapine 10 mg q.h.s. for bipolar disorder, with added benefit of sleep. He will also have hydroxyzine 50 mg p.o. q.6 hours p.r.n. agitation and anxiety. We will obtain a fasting lipid panel in the morning due to the second generation antipsychotic use. Discharge plan will involve coordination with appropriate aftercare. Our intention is to refer the patient bed-to-bed to dual diagnosis rehab and estimated length of stay is 5-7 days. DAVID COHN, LEE [id number]/[facility] #: [id number] HERBIE
[2017-02-02] MEDS: OLANzapine TAB* 10 MG PO SCH (20:59)
[2017-02-02] MEDS ORDERED: diPHENhydraMINE PO* 50 MG PO PRN (21:00)
[2017-02-03] MEDS: Gabapentin CAP(*) 300 MG PO SCH ×3 (08:39→20:18)
[2017-02-03] MEDS: Vitamin THERAPEUTIC TAB PO SCH (08:39)
[2017-02-03 08:59] LABS: HDL Cholesterol 42.4 mg/dL
--- NOTE | 2017-02-03 14:05 | PN ---
Subjective - Subjective Service Type: 06467 Hosp care 25 min moderate complexity Subjective: Jourdan reports improved sleep and energy. He reports sleeping "very much" over the night. He continues to endorse desire for referral to dual diagnosis inpatient treatment. He reports guilt and remorse about returning to the hospital. Jourdan endorses improvement in paranoid delusions but has residual thoughts of "the government giving me drugs to kill me or make me insane." He reports thoughts of the government telling staff to write everything down about him. He reports mild anxiety and that he is trying to use deep breathing for coping. He recalls being on depakote in the past and that this "calmed me down. " Jourdan reports bump near tailbone that is painful at times. With male staff member Parveen Seals present, skin assessment completed. Skin intact, pea-sized nodule palpable. Jourdan denies pain or tenderness. No redness, drainage. Encouraged to request acetaminophen if needed. Objective - Appearance Appearance: Well Developed/Nourished Dysmorphic Features: Yes Hygiene: Normal Grooming: Well Kept - Behavior Psychomotor Activities: Normal Exhibits Abnormal Movement: No - Attitude and Relatedness Attitude and Relatedness: Cooperative Eye Contact: Fair - Speech Quality: Unpressured Latencies: Normal Quantity: Appropriate - Mood Patient's Decription of Mood: "Okay" - Affect Observed Affect: Depressed Affect Consistent with: Dysphoria - Thought Process Patient's Thought Process: Coherent, Goal Directed Thought Content: Yes Paranoid Ideation - persecutory, government conspiracy, No Passive Wish, No Suicidal Planning, No Homicidal Ideation - Sensorium Experiencing Hallucinations: No, Sensorium is Clear Type of Hallucinations: Visual: No, Auditory: No, Command: No - Level of Consciousness Level of Consciousness: Alert Orientation: Yes Intact, Yes Orientated to Time, Yes Orientated to Place, Yes Orientated to Person - Impulse Control Impulse Control: Intact - Insight and Judgement Insight and Judgement: Good - Group Participation Particating in Group Activities: Yes - Medication Management Medication Management Adherence: Yes Assessment - Assessment Merits Inpatient Hospitalization: For Immediate Safety, For Stabilization, For Discharge Planning, Pending Safe DC Plan Inpatient DSM-IV Dx: bipolar II d/o; cocaine use d/o; alcohol use d/o Plan - Plan Treatment Plan: Name: JOURDAN FORBES Birthdate: 1985 [id number] Continue to titrate medications to efficacy. May consider increase in olanzapine and gabapentin. Continue intensive milieu, individual and group therapy. Continued Medication Management: Consider Medication Medications: Current Medications Acetaminophen (Tylenol Tab*) 650 mg PO Q4H PRN PRN Reason: for pain; or Temp >101 F Al Hydrox/Mg Hydrox/Simethicone (Maalox Plus*) 30 ml PO Q4H PRN PRN Reason: INDIGESTION Diphenhydramine HCl (Benadryl Po*) 50 mg PO BEDTIME PRN PRN Reason: INSOMNIA Docusate Sodium (Colace Cap*) 100 mg PO BID PRN PRN Reason: CONSTIPATION Gabapentin (Neurontin Cap(*)) 300 mg PO TID [facility] Last Admin: 02/03/17 13:53 Dose: 300 mg Hydroxyzine HCl (Atarax Tab*) 50 mg PO Q6H PRN PRN Reason: AGITATION/ANXIETY/INSOMNIA Last Admin: 02/02/17 11:48 Dose: 50 mg Multivitamins (Theragran Tab*) 1 tab PO DAILY [facility] Last Admin: 02/03/17 08:39 Dose: 1 tab Nicotine (Nicotine Inhaler*) 10 mg INH Q2H PRN PRN Reason: CRAVING Last Admin: 02/02/17 11:47 Dose: 10 mg Nicotine Polacrilex (Nicotine Gum*) 2 mg PO Q2H PRN PRN Reason: CRAVING Last Admin: 02/03/17 08:39 Dose: 2 mg Olanzapine (Zyprexa Tab*) 10 mg PO BEDTIME [facility] Last Admin: 02/02/17 20:59 Dose: 10 mg - Discharge Plan Discharge Plan: Drug/Alcohol Rehab Outpatient Program: dual diagnosis inpatient
[2017-02-03] MEDS: OLANzapine TAB* 10 MG PO SCH (21:03)
[2017-02-04] MEDS: Gabapentin CAP(*) 300 MG PO SCH ×3 (08:52→20:29)
[2017-02-04] MEDS: Vitamin THERAPEUTIC TAB PO SCH (08:53)
[2017-02-04] MEDS ORDERED: Gabapentin CAP(*) 300 MG PO ONE (11:04)
[2017-02-04] MEDS: hydrOXYzine HCL TAB* 50 MG PO PRN ×2 (11:04→19:04)
[2017-02-04] MEDS: Nicotine Inhaler* 10 MG AMP INH PRN ×2 (11:23→16:28)
--- NOTE | 2017-02-04 11:26 | PN ---
Subjective - Subjective Service Type: 44683 Hosp care 15 min low complexity Subjective: Jourdan has been medication compliant, isolative from peers and staff. He endorses hopelessness and helplessness. He states "I'm tired of going through this. Nothing ever changes." He reports concern that his medications are not effective. Jourdan endorses generalized anxiety and agitation. He reports frustration at not knowing how long he will be hospitalized. Jourdan endorses improvement in paranoid delusions in regards to thought broadcasting and government conspiracies. He reports continued thoughts that "a bullet is going to come through the window." He identifies that this is irrational. Jourdan denies thoughts of harm towards himself or others. Jourdan denies pain or need for medical attention, other than nursing interventions. Objective - Appearance Appearance: Well Developed/Nourished Dysmorphic Features: Yes Hygiene: Normal Grooming: Well Kept - Behavior Psychomotor Activities: Normal Exhibits Abnormal Movement: No - Attitude and Relatedness Attitude and Relatedness: Withdrawn Eye Contact: Fair - Speech Quality: Unpressured Latencies: Normal Quantity: Appropriate - Mood Patient's Decription of Mood: "Anxious" - Affect Observed Affect: Depressed Affect Consistent with: Dysphoria - Thought Process Patient's Thought Process: Coherent Thought Content: Yes Paranoid Ideation, No Passive Wish, No Suicidal Planning, No Homicidal Ideation - Sensorium Experiencing Hallucinations: No, Sensorium is Clear - Level of Consciousness Level of Consciousness: Alert Orientation: Yes Intact, Yes Orientated to Time, Yes Orientated to Place, Yes Orientated to Person - Impulse Control Impulse Control: Intact - Insight and Judgement Insight and Judgement: Fair - Group Participation Particating in Group Activities: No - Medication Management Medication Management Adherence: Yes Assessment - Assessment Merits Inpatient Hospitalization: For Immediate Safety, For Discharge Planning, Pending Safe DC Plan Inpatient DSM-IV Dx: bipolar II d/o; cocaine use d/o; alcohol use d/o Clinical Impression: Jourdan is a 31-year-old male with acute cocaine and alcohol abuse disorder. In reviewing his history, he likely had an onset of bipolar disorder in his early teens, although this was not diagnosed until recently. This has manifested in substance use and legal consequences. Jourdan is agreeable to treatment on the mental health unit for psychiatric stabilization with a referral to inpatient substance use treatment. He is reporting improvement in psychotic features; continues to endorse depressive symptoms and anxiety. He is agreeable to an increase in gabapentin and declines increase in olanzapine. He is encouraged to participate in programming. Discharge planning includes pursuing a dual diagnosis inpatient facility. Plan - Plan Treatment Plan: Name: JOURDAN FORBES Birthdate: 1985 [id number] Continue to titrate medications to efficacy. May consider increase in olanzapine and gabapentin. Continue intensive milieu, individual and group therapy. Continued Medication Management: Different Medication Medications: Current Medications Acetaminophen (Tylenol Tab*) 650 mg PO Q4H PRN PRN Reason: for pain; or Temp >101 F Al Hydrox/Mg Hydrox/Simethicone (Maalox Plus*) 30 ml PO Q4H PRN PRN Reason: INDIGESTION Diphenhydramine HCl (Benadryl Po*) 50 mg PO BEDTIME PRN PRN Reason: INSOMNIA Docusate Sodium (Colace Cap*) 100 mg PO BID PRN PRN Reason: CONSTIPATION Gabapentin (Neurontin Cap(*)) 600 mg PO TID [facility] Hydroxyzine HCl (Atarax Tab*) 50 mg PO Q6H PRN PRN Reason: AGITATION/ANXIETY/INSOMNIA Last Admin: 02/04/17 11:04 Dose: 50 mg Multivitamins (Theragran Tab*) 1 tab PO DAILY [facility] Last Admin: 02/04/17 08:53 Dose: 1 tab Nicotine (Nicotine Inhaler*) 10 mg INH Q2H PRN PRN Reason: CRAVING Last Admin: 02/04/17 11:23 Dose: 10 mg Nicotine Polacrilex (Nicotine Gum*) 2 mg PO Q2H PRN PRN Reason: CRAVING Last Admin: 02/03/17 08:39 Dose: 2 mg Olanzapine (Zyprexa Tab*) 10 mg PO BEDTIME [facility] Last Admin: 02/03/17 21:03 Dose: 10 mg - Discharge Plan Discharge Plan: Drug/Alcohol Rehab Outpatient Program: dual diagnosis inpatient
[2017-02-04] MEDS: Docusate CAP* 100 MG PO PRN (15:32)
[2017-02-04] MEDS: OLANzapine TAB* 10 MG PO SCH (20:30)
[2017-02-05] MEDS: Vitamin THERAPEUTIC TAB PO SCH (08:23)
[2017-02-05] MEDS: Gabapentin CAP(*) 300 MG PO SCH ×3 (08:23→19:36)
[2017-02-05] MEDS: Nicotine Inhaler* 10 MG AMP INH PRN ×3 (08:33→20:56)
[2017-02-05] MEDS ORDERED: cloNIDine TAB* 0.1 MG PO PRN (16:18)
--- NOTE | 2017-02-05 16:26 | PN ---
Subjective - Subjective Service Type: 85024 Hosp care 15 min low complexity Subjective: Patient c/o anxiety and paranoia and is requesting lorazepam for relief of these symptoms. "I keep thinking a bullet is gonna come right through that window and splat me in the head. I had been doing fine up until today. I'm just not doing that good." The patient is disappointed to find out that rehab services are unlikely to accept him if he's on a controlled substance, even as a prn. He notes that his gabapentin was just increased from 300 to 600mg TID. Patient denies SI or HI. Objective - Appearance Appearance: Well Developed/Nourished Dysmorphic Features: No Hygiene: Normal Grooming: Well Kept - Behavior Psychomotor Activities: Normal Exhibits Abnormal Movement: No - Attitude and Relatedness Attitude and Relatedness: Cooperative Eye Contact: Fair - Speech Quality: Unpressured Latencies: Normal Quantity: Appropriate - Mood Patient's Decription of Mood: "Anxious" - Affect Observed Affect: Tense Affect Consistent with: Dysphoria - Thought Process Patient's Thought Process: Coherent Thought Content: Yes Paranoid Ideation, No Passive Wish, No Suicidal Planning, No Homicidal Ideation - Sensorium Experiencing Hallucinations: No, Sensorium is Clear Type of Hallucinations: Visual: No, Auditory: No, Command: No - Level of Consciousness Level of Consciousness: Alert Orientation: Yes Intact, Yes Orientated to Time, Yes Orientated to Place, Yes Orientated to Person - Impulse Control Impulse Control: Tenuous - Insight and Judgement Insight and Judgement: Fair - Group Participation Particating in Group Activities: Yes - Medication Management Medication Management Adherence: Yes Assessment - Assessment Merits Inpatient Hospitalization: For Immediate Safety, For Stabilization Inpatient DSM-IV Dx: bipolar II d/o; cocaine use d/o; alcohol use d/o Clinical Impression: 31 y.o. single, white, homeless, unemployed male with a history of comorbid chemical dependency and bipolarity arrives seeking hospitalization for symptoms of paranoia and violent ideation. Plan - Plan Treatment Plan: Name: JOURDAN FORBES Birthdate: 1985 [id number] Patient awaits placement in an inpatient and/or residential substance abuse setting. We are treating his psychosis with olanzapine and his affective/ anxiety problems with gabapentin. Will add clonidine 0.1mg PO TID as a prn for further anxiety. Continued Medication Management: Start Medication Medications: Current Medications Acetaminophen (Tylenol Tab*) 650 mg PO Q4H PRN PRN Reason: for pain; or Temp >101 F Al Hydrox/Mg Hydrox/Simethicone (Maalox Plus*) 30 ml PO Q4H PRN PRN Reason: INDIGESTION Clonidine HCl (Catapres Tab*) 0.1 mg PO TID PRN PRN Reason: AGITATION/ANXIETY/INSOMNIA Diphenhydramine HCl (Benadryl Po*) 50 mg PO BEDTIME PRN PRN Reason: INSOMNIA Docusate Sodium (Colace Cap*) 100 mg PO BID PRN PRN Reason: CONSTIPATION Last Admin: 02/04/17 15:32 Dose: 100 mg Gabapentin (Neurontin Cap(*)) 600 mg PO TID [facility] Last Admin: 02/05/17 13:15 Dose: 600 mg Hydroxyzine HCl (Atarax Tab*) 50 mg PO Q6H PRN PRN Reason: AGITATION/ANXIETY/INSOMNIA Last Admin: 02/04/17 19:04 Dose: 50 mg Multivitamins (Theragran Tab*) 1 tab PO DAILY [facility] Last Admin: 02/05/17 08:23 Dose: 1 tab Nicotine (Nicotine Inhaler*) 10 mg INH Q2H PRN PRN Reason: CRAVING Last Admin: 02/05/17 13:50 Dose: 10 mg Nicotine Polacrilex (Nicotine Gum*) 2 mg PO Q2H PRN PRN Reason: CRAVING Last Admin: 02/03/17 08:39 Dose: 2 mg Olanzapine (Zyprexa Tab*) 10 mg PO BEDTIME [facility] Last Admin: 02/04/17 20:30 Dose: 10 mg - Discharge Plan Discharge Plan: Drug/Alcohol Rehab
[2017-02-05] MEDS: hydrOXYzine HCL TAB* 50 MG PO PRN (19:35)
[2017-02-05] MEDS: OLANzapine TAB* 10 MG PO SCH (19:36)
[2017-02-06] MEDS: Gabapentin CAP(*) 300 MG PO SCH ×3 (08:10→20:08)
[2017-02-06] MEDS: Docusate CAP* 100 MG PO PRN (08:11)
[2017-02-06] MEDS: Vitamin THERAPEUTIC TAB PO SCH (08:11)
[2017-02-06] MEDS: Nicotine Inhaler* 10 MG AMP INH PRN ×3 (08:11→20:10)
[2017-02-06] MEDS: OLANzapine TAB* 10 MG PO SCH (20:09)
[2017-02-07] MEDS: Gabapentin CAP(*) 300 MG PO SCH ×5 (08:20→22:28)
[2017-02-07] MEDS: Vitamin THERAPEUTIC TAB PO SCH (08:20)
[2017-02-07] MEDS: Nicotine Inhaler* 10 MG AMP INH PRN ×3 (08:21→22:28)
--- NOTE | 2017-02-07 13:54 | PN ---
[facility]: Group Therapy Note - Service Type Service Type: 55299 Group Psychotherapy - Cognitive Behavioral Group Therapy ( CBT):Patient was attentive and participatory in CBT programming this morning, and remained in good behavioral control. Patient expressed positive insights regarding relevant treatment interventions and goals.
--- NOTE | 2017-02-07 14:03 | PN ---
Subjective - Subjective Service Type: 38058 Hosp care 15 min low complexity Subjective: Patient reports "I'm doing good!" and rates himself ast 8/10, 10 being the best in terms of mood. He endorses an improved outlook and renewed roma. He states he and his new roommate had a "good talk about God" this morning. Jourdan reports mild anxiety "from time to time but it's manageable." He states he wakes with nightmares. He reports mild improvement in paranoid thoughts. He states he is more prone to these in the early evenings. Jourdan reports much improvement in cravings for substances. He attributes this to use of gabapentin and states "it's always worked for me" and "it keeps me from getting high." He gives examples of turning down offers of drugs when taking gabapentin. He denies SI/SIB or HI/. Objective - Appearance Appearance: Well Developed/Nourished Dysmorphic Features: No Hygiene: Normal Grooming: Well Kept - Behavior Psychomotor Activities: Normal Exhibits Abnormal Movement: No - Attitude and Relatedness Attitude and Relatedness: Cooperative Eye Contact: Good - Speech Quality: Unpressured Latencies: Normal Quantity: Appropriate - Mood Patient's Decription of Mood: "Good" - Affect Observed Affect: Good Affect Consistent with: Euthymia - Thought Process Patient's Thought Process: Coherent, Goal Directed Thought Content: No Passive Wish, No Suicidal Planning, No Homicidal Ideation, No Paranoid Ideation - Sensorium Experiencing Hallucinations: No, Sensorium is Clear Type of Hallucinations: Visual: No, Auditory: No, Command: No - Level of Consciousness Level of Consciousness: Alert Orientation: Yes Intact, Yes Orientated to Time, Yes Orientated to Place, Yes Orientated to Person - Impulse Control Impulse Control: Intact - Insight and Judgement Insight and Judgement: Good - Group Participation Particating in Group Activities: Yes - Medication Management Medication Management Adherence: Yes Assessment - Assessment Merits Inpatient Hospitalization: For Immediate Safety, Pending Safe DC Plan Inpatient DSM-IV Dx: bipolar II d/o; cocaine use d/o; alcohol use d/o Clinical Impression: 31 y.o. single, white, homeless, unemployed male with a history of comorbid chemical dependency and bipolarity arrives seeking hospitalization for symptoms of paranoia and violent ideation. Plan - Plan Treatment Plan: Name: JOURDAN FORBES Birthdate: 1985 [id number] Continue to titrate medications to efficacy. Continue intensive milieu, individual and group therapy. Discharge planning includes substance use inpatient treatment. Continued Medication Management: Consider Medication Medications: Current Medications Acetaminophen (Tylenol Tab*) 650 mg PO Q4H PRN PRN Reason: for pain; or Temp >101 F Al Hydrox/Mg Hydrox/Simethicone (Maalox Plus*) 30 ml PO Q4H PRN PRN Reason: INDIGESTION Clonidine HCl (Catapres Tab*) 0.1 mg PO TID PRN PRN Reason: AGITATION/ANXIETY/INSOMNIA Last Admin: 02/05/17 19:35 Dose: 0.1 mg Diphenhydramine HCl (Benadryl Po*) 50 mg PO BEDTIME PRN PRN Reason: INSOMNIA Docusate Sodium (Colace Cap*) 100 mg PO BID PRN PRN Reason: CONSTIPATION Last Admin: 02/06/17 08:11 Dose: 100 mg Gabapentin (Neurontin Cap(*)) 600 mg PO TID [facility] Last Admin: 02/07/17 13:38 Dose: 600 mg Hydroxyzine HCl (Atarax Tab*) 50 mg PO Q6H PRN PRN Reason: AGITATION/ANXIETY/INSOMNIA Last Admin: 02/04/17 19:04 Dose: 50 mg Multivitamins (Theragran Tab*) 1 tab PO DAILY [facility] Last Admin: 02/07/17 08:20 Dose: 1 tab Nicotine (Nicotine Inhaler*) 10 mg INH Q2H PRN PRN Reason: CRAVING Last Admin: 02/07/17 13:37 Dose: 10 mg Nicotine Polacrilex (Nicotine Gum*) 2 mg PO Q2H PRN PRN Reason: CRAVING Last Admin: 02/03/17 08:39 Dose: 2 mg Olanzapine (Zyprexa Tab*) 10 mg PO BEDTIME [facility] Last Admin: 02/06/17 20:09 Dose: 10 mg - Discharge Plan Discharge Plan: Drug/Alcohol Rehab Outpatient Program: inpatient substance use tx
[2017-02-07] MEDS: OLANzapine TAB* 10 MG PO SCH ×3 (21:38→22:28)
[2017-02-08] MEDS: Nicotine Inhaler* 10 MG AMP INH PRN ×4 (07:43→21:36)
[2017-02-08] MEDS: Vitamin THERAPEUTIC TAB PO SCH (07:43)
[2017-02-08] MEDS: Gabapentin CAP(*) 300 MG PO SCH ×3 (07:43→20:55)
[2017-02-08 07:50] VITALS: BP 146/59
--- NOTE | 2017-02-08 15:43 | PN ---
Subjective - Subjective Subjective: Jourdan states "I feel great!" and reports he is surprised at the improvement in the past week. He reports he is eagerly anticipating going to [place] tomorrow morning. He denies cravings to use substances, including cigarettes. He states he is hopeful that he will also have outpatient treatment afterwards. He describes some fear of relapse if not in a controlled environment. He states he is acknowledging need to work on anger management, as well. Jourdan reports adequate appetite and that he slept "a lot" last night. He feels well rested. He denies SI or thoughts of self-harm. He denies intrusive thoughts or paranoia. Objective - Appearance Appearance: Well Developed/Nourished Dysmorphic Features: No Hygiene: Normal Grooming: Well Kept - Behavior Psychomotor Activities: Normal Exhibits Abnormal Movement: No - Attitude and Relatedness Attitude and Relatedness: Cooperative Eye Contact: Good - Speech Quality: Unpressured Latencies: Normal Quantity: Appropriate - Mood Patient's Decription of Mood: "Great" - Affect Observed Affect: Good Affect Consistent with: Euthymia - Thought Process Patient's Thought Process: Coherent, Goal Directed Thought Content: No Passive Wish, No Suicidal Planning, No Homicidal Ideation, No Paranoid Ideation - Sensorium Experiencing Hallucinations: No, Sensorium is Clear Type of Hallucinations: Visual: No, Auditory: No, Command: No - Level of Consciousness Level of Consciousness: Alert Orientation: Yes Intact, Yes Orientated to Time, Yes Orientated to Place, Yes Orientated to Person - Impulse Control Impulse Control: Intact - Insight and Judgement Insight and Judgement: Good - Group Participation Particating in Group Activities: Yes Assessment - Assessment Merits Inpatient Hospitalization: For Immediate Safety, For Discharge Planning, Pending Safe DC Plan Inpatient DSM-IV Dx: bipolar II d/o; cocaine use d/o; alcohol use d/o Clinical Impression: 31 y.o. single, white, homeless, unemployed male with a history of comorbid chemical dependency and bipolarity arrives seeking hospitalization for symptoms of paranoia and violent ideation. He is agreeable to bed to bed transfer to [facility] tomorrow morning. Plan - Plan Treatment Plan: Name: JOURDAN FORBES Birthdate: 1985 [id number] Continue current medications. Continue intensive milieu, individual and group therapy. Discharge to [facility] inpatient substance use rehab tomorrow morning, 02/09/17. Continued Medication Management: Consider Medication Medications: Current Medications Acetaminophen (Tylenol Tab*) 650 mg PO Q4H PRN PRN Reason: for pain; or Temp >101 F Al Hydrox/Mg Hydrox/Simethicone (Maalox Plus*) 30 ml PO Q4H PRN PRN Reason: INDIGESTION Clonidine HCl (Catapres Tab*) 0.1 mg PO TID PRN PRN Reason: AGITATION/ANXIETY/INSOMNIA Last Admin: 02/05/17 19:35 Dose: 0.1 mg Diphenhydramine HCl (Benadryl Po*) 50 mg PO BEDTIME PRN PRN Reason: INSOMNIA Docusate Sodium (Colace Cap*) 100 mg PO BID PRN PRN Reason: CONSTIPATION Last Admin: 02/06/17 08:11 Dose: 100 mg Gabapentin (Neurontin Cap(*)) 600 mg PO TID [facility] Last Admin: 02/08/17 13:37 Dose: 600 mg Hydroxyzine HCl (Atarax Tab*) 50 mg PO Q6H PRN PRN Reason: AGITATION/ANXIETY/INSOMNIA Last Admin: 02/04/17 19:04 Dose: 50 mg Multivitamins (Theragran Tab*) 1 tab PO DAILY [facility] Last Admin: 02/08/17 07:43 Dose: 1 tab Nicotine (Nicotine Inhaler*) 10 mg INH Q2H PRN PRN Reason: CRAVING Last Admin: 02/08/17 13:38 Dose: 10 mg Nicotine Polacrilex (Nicotine Gum*) 2 mg PO Q2H PRN PRN Reason: CRAVING Last Admin: 02/03/17 08:39 Dose: 2 mg Olanzapine (Zyprexa Tab*) 10 mg PO BEDTIME [facility] Last Admin: 02/07/17 22:28 Dose: 10 mg - Discharge Plan Discharge Plan: Drug/Alcohol Rehab Outpatient Program: [facility]
[2017-02-08] MEDS: hydrOXYzine HCL TAB* 50 MG PO PRN (15:44)
[2017-02-08] MEDS: OLANzapine TAB* 10 MG PO SCH (20:56)
[2017-02-09] MEDS: Gabapentin CAP(*) 300 MG PO SCH (08:21)
[2017-02-09] MEDS: Vitamin THERAPEUTIC TAB PO SCH (08:21)
--- NOTE | 2017-02-10 10:52 | DS ---
DISCHARGE SUMMARY: DATE OF ADMISSION: 02/02/17 DATE OF DISCHARGE: 02/09/17 ATTENDING PHYSICIAN: Dr. Larry Juarez* (dictated by Aye Cohn NP). DISCHARGE DIAGNOSES: 1. Bipolar 2 disorder. 2. Cocaine use disorder. 3. Alcohol use disorder. CONDITION AT THE TIME OF DISCHARGE: Improved. MENTAL STATUS EXAM: Jelani was euthymic and cooperative. He was well groomed, muscular build, appeared slightly older than stated age. He was dressed in T- shirt and sweat pants. He is alert and oriented x3, cooperative and pleasant. Concentration was good. Memory 3/3. He described his mood as "great". Affect was congruent. Speech soft and articulate. Thought process is logical and goal oriented. Content of thought included eagerness for discharge to be transferred to substance abuse inpatient treatment. He denies SI or thoughts of self harm. He denies cravings to use substances. Insight was good in that he is motivated to pursue recovery. His judgment is good and that he acknowledges that further substance use inpatient treatment is warranted. Fund of knowledge is excellent. Instructions were given to the patient in written form. MEDICATIONS: Include: 1. Gabapentin 600 mg p.o. t.i.d. 2. Olanzapine 10 mg p.o. q.h.s. 3. Clonidine 0.1 mg p.o. t.i.d. p.r.n. anxiety, agitation. 4. Hydroxyzine 50 mg p.o. q. 6 hours p.r.n. agitation, anxiety, insomnia. 5. Docusate sodium 100 mg p.o. b.i.d. p.r.n. constipation. 6. Diphenhydramine 50 mg p.o. q.h.s. p.r.n. insomnia. DIET: Regular. ACTIVITY: As tolerated. Continue tobacco cessation, nicotine replacement per protocol of accepting facility, and there are no pending labs or diagnostic studies at the time of discharge. HOSPITAL COURSE: Reason for admission: Jelani presented to the emergency room with paranoia, psychosis, and suicidal ideation with recent attempts of suicide a week prior. While in the ER, he was observed to be hypervigilant and expressed concern that his phone was tapped. He reports that he had stopped taking his medications approximately 4 months ago due to not having access to healthcare insurance and also due to substance use. PSYCHIATRIC TREATMENT RENDERED: Jelani was admitted to the unit under 939 status. He was placed on 15 minute checks for safety and monitored by staff for mood and thought content. He continued to present as withdrawn and expressed intrusive thoughts and paranoia. He was accepting of a re-trial of olanzapine and gabapentin as he had reported efficacy with these in the past. Gabapentin was titrated to 600 mg t.i.d. and after 2 to 3 days, paranoia started to clear. Jelani was given information on dual diagnosis substance use treatments and he was in agreement to pursue these for discharge planning. He participated in micro programming and was eventually accepted to [facility] with a bed date of today. Jelani was decreased to 30-minute checks and allowed to go on outside privileges. He was cooperative with unit programming and groups. He was pleasant and cooperative with staff and peers. He denies suicidal ideation or CHRISTOPHER urges. He continues to deny cravings for substance use and is looking forward to inpatient substance use treatment. He is also agreeable to possibilities for outpatient aftercare such as [facility]. Jelani was given discharge information and medications list was printed in order to resume these upon admission to [facility]. I checked I-STOP and there were no controlled prescriptions. [facility] reference #[id number]. Jelani was discharged by nursing staff in the morning at 0930 on 02/09, and he was escorted to transportation provided to [facility]. AYE COHN NP [id number]/CPS #: [id number] HERBIE
== END 2017-02-09 09:45 | DRG 753 ==
LOC: ED 17:12 → BSU 02-02 10:57
PROVIDERS: ADMIT Psychiatry & Neurology Psychiatry; ATTEND Psychiatry & Neurology Psychiatry
PROC: GZHZZZZ Group Psychotherapy (ICD-10-PCS; principal; 2017-02-07)
DX: F31.81 Bipolar II disorder (principal); R45.851 Suicidal ideations; F22 Delusional disorders; F14.90 Cocaine use, unspecified, uncomplicated; F41.9 Anxiety disorder, unspecified; F43.10 Post-traumatic stress disorder, unspecified; F17.210 Nicotine dependence, cigarettes, uncomplicated; R40.2412 Glasgow coma scale score 13-15, at arrival to emergency department; R22.2 Localized swelling, mass and lump, trunk; Z72.89 Other problems related to lifestyle; Z91.5 Personal history of self-harm; Z59.0 Homelessness; Z56.0 Unemployment, unspecified; Z81.8 Family history of other mental and behavioral disorders
CPT/HCPCS: 36415; 80053; 80061; 80307; 80320; 80329; 81003; 84443; 85025; 90853; 99222; 99231; 99238; A9270-GY; G0480

== ENCOUNTER 2017-02-15 17:59 | Emergency (ER) | payer MEDICAID ==
[2017-02-15] MEDS ORDERED: Acetaminophen TAB* 325 MG PO ONE (18:26)
[2017-02-15] MEDS ORDERED: NS 0.9% 1000 ML* 1,000 ML IV ONE (19:41)
[2017-02-15 20:14] LABS: Mono Internal Control QC Line Present
--- NOTE | 2017-02-15 20:42 | ED ---
Throat Pain/Nasal Congestion - HPI Summary HPI Summary: Pt here w/ ST and ear pressure x 2 days. Worse today and fever of 102.7 F so came to ED via ambulance. Pain w/ swallowing - nausea w/o vomiting or ab pain. Denies rash, cough, diarrhea. No known h/o strep or mono. Female partner reports she has a ST as well - just started. Pt reports he just stopped drinking and smoking 4 days ago - was a daily drinker - no seizures. - History of Current Complaint Chief Complaint: EDFever Time Seen by Provider: 02/15/17 18:26 Hx Obtained From: Patient, Family/Telecom Sales Consultant - female partner - Allergies/Home Medications Allergies/Adverse Reactions: Allergies Allergy/AdvReac Type Severity Reaction Status Date / Time No Known Allergies Allergy Verified 02/05/17 11:30 PMH/Surg Hx/FS Hx/Imm Hx Previously Healthy: Yes Endocrine/Hematology History: Denies: Hx Blood Disorders, Hx Diabetes, Hx Thyroid Disease, Hx Anemia, Autoimmune Disease Cardiovascular History: Denies: Hx Hypertension Respiratory History: Denies: Hx Asthma, Hx Chronic Bronchitis, Hx Chronic Obstructive Pulmonary Disease (COPD), Hx Cystic Fibrosis, Hx Lung Cancer, Hx Pleural Effusion, Hx Pneumonia, Hx Pulmonary Edema, Hx Pulmonary Embolism, Hx Seasonal Allergies, Hx Sleep Apnea, Other Respiratory Problems/Disorders GI History: Denies: Hx Cirrhosis, Hx Crohn's Disease, Hx Diverticulosis, Hx Gall Bladder Disease, Hx Gastroesophageal Reflux Disease, Hx Gastrointestinal Bleed, Hx Hiatal Hernia, Hx Irritable Bowel, Hx Jaundice, Hx Obstructive Bowel, Hx Ileostomy, Hx Pyloric Stenosis, Hx Ulcer, Other GI Disorders History: Denies: Hx Acute Renal Failure, Hx Benign Prostatic Hyperplasia, Hx Chronic Renal Failure, Hx Dialysis, Hx Kidney Infection, Hx Kidney Stones, Other Problems/Disorders Musculoskeletal History: Denies: Hx Arthritis, Hx Back Problems, Hx Bursitis, Hx Congenital Bone Abnormalities, Hx Fibromyalgia, Hx Gout, Hx Orthopedic Injury, Hx Osteoporosis, Hx Scoliosis, Hx Tendonitis, Other Musculoskeletal History Sensory History: Denies: Hx Cataracts, Hx Contacts or Glasses, Hx Eye Injury, Hx Eye Prosthesis, Hx Glaucoma, Hx Vision Problem, Hx Hearing Aid Opthamlomology History: Denies: Hx Cataracts, Hx Contacts or Glasses, Hx Eye Injury, Hx Eye Prosthesis, Hx Glaucoma, Hx Vision Problem Psychiatric History: Reports: Hx Anxiety, Hx Post Traumatic Stress Disorder, Hx Inpatient Treatment, Hx Bipolar Disorder, Hx of Violent Episodes Against Others , Hx Substance Abuse - crack cocaine, alcohol, Other Psychiatric Issues/ Disorders - admitted for MH issues in the past; not clear of dx Denies: Hx Eating Disorder, Hx Suicide Attempt - Surgical History Hx Anesthesia Reactions: No Infectious Disease History: No Infectious Disease History: Denies: Hx Clostridium Difficile, Hx Hepatitis, Hx Human Immunodeficiency Virus (HIV), Hx of Known/Suspected MRSA, Hx Shingles, Hx Tuberculosis, History Other Infectious Disease, Traveled Outside the [place] in Last 30 Days - Family History Known Family History: Positive: Other - pt's sister was suicidal, has depression ,anxiety, and bipolar disease. - Social History Occupation: Unemployed Lives: With Family - female partner Alcohol Use: Weekly Alcohol Amount: 5-6 drinks, 3-4 times per week; reports quitting 02/11/2017 Hx Substance Use: Yes Substance Use Type: Reports: Cocaine Substance Use Comment - Amount & Last Used: snorts occasionally; no use since Smoking Status (MU): Heavy Every Day Tobacco Smoker Type: Cigarettes Amount Used/How Often: 1 PPD - quit 02/13/2017 Length of Time of Smoking/Using Tobacco: smoking cigarettes more than one year. No other form of tobacco ever used Have You Smoked in the Last Year: Yes Review of Systems Positive: Fever - see HPI Eyes: Negative Positive: Sore Throat, Ear Ache. Negative: Nasal Discharge Negative: Chest Pain Negative: Shortness Of Breath, Cough Positive: Nausea. Negative: Abdominal Pain, Vomiting, Diarrhea Positive: no symptoms reported Musculoskeletal: Negative Skin: Negative Positive: Headache. Negative: Weakness, Paresthesia, Numbness, Syncope, Slurred Speech Positive: Anxious All Other Systems Reviewed And Are Negative: Yes Physical Exam Triage Information Reviewed: Yes Vital Signs On Initial Exam: Initial Vitals Temp Pulse Resp BP Pulse Ox 102.7 F 87 17 118/64 96 02/15/17 18:07 02/15/17 18:07 02/15/17 18:07 02/15/17 18:07 02/15/17 18:07 Vital Signs Reviewed: Yes Appearance: Positive: Well-Nourished, Pain Distress - pt lying in stretcher - reports pain and discomfort, anxious and agitated - GF is anxious as well Skin: Positive: Warm - skin feverish to touch - no rash, Dry Head/Face: Positive: Normal Head/Face Inspection Eyes: Positive: Normal, EOMI, STEPH, Conjunctiva Clear. Negative: Conjunctiva Inflammed, Discharge ENT: Positive: Hearing grossly normal, Pharynx normal, TMs normal, Tonsillar swelling, Tonsillar exudate. Negative: Nasal congestion, Nasal drainage Neck: Positive: Supple, No Lymphadenopathy, Tenderness @ Respiratory/Lung Sounds: Positive: Clear to Auscultation, Breath Sounds Present. Negative: Rales, Rhonchi, Stridor, Wheezes Cardiovascular: Positive: Normal, RRR. Negative: Murmur, Rub Abdomen Description: Positive: No Organomegaly, Soft, Other: - mild TTP over LUQ Bowel Sounds: Positive: Present Musculoskeletal: Positive: Normal, Strength/ROM Intact Neurological: Positive: Normal, Sensory/Motor Intact, Alert, Oriented to Person Place, Time, CN Intact II-III Psychiatric: Positive: Anxious Diagnostics - Vital Signs Vital Signs Temp Pulse Resp BP Pulse Ox 02/15/17 18:11 102.7 F 87 17 118/64 97 02/15/17 18:07 102.7 F 87 17 118/64 96 - Laboratory Lab Results: Lab Results 02/15/17 02/15/17 Range/Units 19:06 19:10 Monoscreen Negative (Negative) Group A Strep Rapid Negative (Negative) Lab Statement: Any lab studies that have been ordered have been reviewed, and results considered in the medical decision making process. Re-Evaluation - Re-Evaluation First Eval Change: Improved - pain and fever reduced s/p acetaminophen, NS IVF - appears more relaxed EENT Course/Dx - Course Course Of Treatment: Pt here w/ fever and ST w/ erythema and exudates. Sx started 2 days ago. Rapid strep neg however may not be sensitive within 48 hours. With negative mono spot, will start amoxicillin and advise f/uw / PCP. If danger s/sx present, return to ED. - Diagnoses Provider Diagnoses: Sore throat Discharge - Discharge Plan Condition: Stable Disposition: HOME Prescriptions: Amoxicillin PO (*) [Amoxicillin 500 MG CAP*] 500 mg PO Q12H #19 cap Patient Education Materials: Strep Throat (ED) Referrals: Non Staff,Doctor [Primary Care Provider] - [facility] [Outside] Additional Instructions: You may have strep throat. It is advised that you try salt water gargles and stay hydrated with plenty of fluids. You may take ibuprofen 600mg every 6 hours with food alternating with acetaminophen 650mg every 6 hours for fever, pain. Complete antibiotics and follow-up with PCP. *If you develop difficulty breathing or swallowing, a fever > 103 despite taking medications as directed or severe headache, neck pain, numbness/weakness , vomiting, diarrhea, return to ED
[2017-02-15] MEDS ORDERED: Amoxicillin/Clavulanate TAB* 500 MG PO ONE (20:47)
[2017-02-15] MEDS ORDERED: Penicillin G Benzathine 1.2MU* 1,200,000 UNITS/2 ML SYR IM ONE (21:03)
[2017-02-15 21:39] VITALS: BP 110/75
== END 2017-02-15 21:39 | disposition home or self-care (01) ==
LOC: ED 17:59
DX: J02.9 Acute pharyngitis, unspecified (principal); F31.9 Bipolar disorder, unspecified; F17.210 Nicotine dependence, cigarettes, uncomplicated
CPT/HCPCS: 36415; 86308; 87651; 96372; 99282; A9270-GY; J0558

== ENCOUNTER 2017-02-21 04:37 | Inpatient (IN) | payer MEDICAID ==
[2017-02-21] MEDS ORDERED: LORazepam TAB(*) 1 MG PO ONE (05:26)
[2017-02-21] MEDS ORDERED: LORazepam TAB(*) 1 MG ONE (05:28)
[2017-02-21 05:44] LABS: Hematocrit 40 % (42-52); Hemoglobin 13.6 g/dl (14.0-18.0); Mean Corpuscular HGB Conc 34 g/dl (31-36); Mean Corpuscular Hemoglobin 31 pg (27-31); Mean Corpuscular Volume 90 fL (80-94); Mean Platelet Volume 7 um3 (7.4-10.4); Red Blood Count 4.44 10^6/ul (4.0-5.4); Red Cell Distribution Width 13 % (10.5-15); White Blood Count 8.4 10^3/ul (3.5-10.8)
[2017-02-21 05:50] LABS: Urine Bilirubin Negative (Negative); Urine Glucose Negative (Negative); Urine Nitrite Negative (Negative)
[2017-02-21 05:55] LABS: ALT 16 U/L (7-52); AST 18 U/L (13-39); Acetaminophen < 15 mcg/mL; Albumin 4.3 g/dL (3.2-5.2); Alcohol 73 mg/dL (<10); Alkaline Phosphatase 68 U/L (34-104); Anion Gap 8 mmol/L (2-11); BUN/Creatinine Ratio 9.9 (8-20); Blood Urea Nitrogen 10 mg/dL (6-24); CO2 Carbon Dioxide 25 mmol/L (22-32); Calcium 9.1 mg/dL (8.6-10.3); Chloride 100 mmol/L (101-111); EGFR African American 112.3 (>60); EGFR Non-African American 87.3 (>60); Globulin 3.2 g/dL (2-4); Glucose 101 mg/dL (70-100); Potassium 3.6 mmol/L (3.5-5.0); Salicylate < 2.50 mg/dL (<30); Sodium 133 mmol/L (133-145); Total Protein 7.5 g/dL (6.4-8.9)
[2017-02-21 06:00] LABS: Benzodiazepine Urine Screen None Detected (None Detect)
--- NOTE | 2017-02-21 06:31 | ED ---
Patricia Collins Alok, scribed for John Boothe MD on 02/21/17 at 0557 . Psychiatric Complaint - HPI Summary HPI Summary: 31M presents to the ED brought by police as a code 941. Pt reportedly expressed suicidal ideation with a plan to due so by knife. PMHx includes anxiety, depression, PTSD, bipolar disorder. - History Of Current Complaint Chief Complaint: EDMentalHealth Hx Obtained From: Patient, Medical Records Onset/Duration: Still Present Timing: Constant Severity Initially: Moderate Severity Currently: Moderate Character: Depressed Aggravating Factor(s): Nothing Alleviating Factor(s): Nothing Has Suicidal: Reports: Thoughts, With A Plan - Allergies/Home Medications Allergies/Adverse Reactions: Allergies Allergy/AdvReac Type Severity Reaction Status Date / Time No Known Allergies Allergy Verified 02/05/17 11:30 PMH/Surg Hx/FS Hx/Imm Hx Endocrine/Hematology History: Denies: Hx Blood Disorders, Hx Diabetes, Hx Thyroid Disease, Hx Anemia Cardiovascular History: Denies: Hx Hypertension Respiratory History: Denies: Hx Asthma, Hx Chronic Bronchitis, Hx Chronic Obstructive Pulmonary Disease (COPD), Hx Cystic Fibrosis, Hx Lung Cancer, Hx Pleural Effusion, Hx Pneumonia, Hx Pulmonary Edema, Hx Pulmonary Embolism, Hx Seasonal Allergies, Hx Sleep Apnea, Other Respiratory Problems/Disorders GI History: Denies: Hx Cirrhosis, Hx Crohn's Disease, Hx Diverticulosis, Hx Gall Bladder Disease, Hx Gastroesophageal Reflux Disease, Hx Gastrointestinal Bleed, Hx Hiatal Hernia, Hx Irritable Bowel, Hx Jaundice, Hx Obstructive Bowel, Hx Ileostomy, Hx Pyloric Stenosis, Hx Ulcer, Other GI Disorders History: Denies: Hx Acute Renal Failure, Hx Benign Prostatic Hyperplasia, Hx Chronic Renal Failure, Hx Dialysis, Hx Kidney Infection, Hx Kidney Stones, Other Problems/Disorders Musculoskeletal History: Denies: Hx Arthritis, Hx Back Problems, Hx Bursitis, Hx Congenital Bone Abnormalities, Hx Fibromyalgia, Hx Gout, Hx Orthopedic Injury, Hx Osteoporosis, Hx Scoliosis, Hx Tendonitis, Other Musculoskeletal History Sensory History: Denies: Hx Cataracts, Hx Contacts or Glasses, Hx Eye Injury, Hx Eye Prosthesis, Hx Glaucoma, Hx Vision Problem, Hx Hearing Aid Opthamlomology History: Denies: Hx Cataracts, Hx Contacts or Glasses, Hx Eye Injury, Hx Eye Prosthesis, Hx Glaucoma, Hx Vision Problem Psychiatric History: Reports: Hx Anxiety, Hx Post Traumatic Stress Disorder, Hx Inpatient Treatment, Hx Bipolar Disorder, Hx of Violent Episodes Against Others , Hx Substance Abuse - crack cocaine, alcohol, Other Psychiatric Issues/ Disorders - admitted for MH issues in the past; not clear of dx Denies: Hx Eating Disorder, Hx Suicide Attempt - Surgical History Hx Anesthesia Reactions: No Infectious Disease History: No Infectious Disease History: Denies: Hx Clostridium Difficile, Hx Hepatitis, Hx Human Immunodeficiency Virus (HIV), Hx of Known/Suspected MRSA, Hx Shingles, Hx Tuberculosis, History Other Infectious Disease, Traveled Outside the [place] in Last 30 Days - Family History Known Family History: Positive: Other - pt's sister was suicidal, has depression ,anxiety, and bipolar disease. - Social History Occupation: Employed Full-time Alcohol Use: Weekly Alcohol Amount: pt reports drinking a lot the last couple of days Hx Substance Use: Yes Substance Use Type: Reports: Cocaine Substance Use Comment - Amount & Last Used: used on 02/20/17 Smoking Status (MU): Heavy Every Day Tobacco Smoker Type: Cigarettes Amount Used/How Often: 1 PPD - quit 02/13/2017 Length of Time of Smoking/Using Tobacco: smoking cigarettes more than one year. No other form of tobacco ever used Have You Smoked in the Last Year: Yes Review of Systems Negative: Fever Positive: Depressed All Other Systems Reviewed And Are Negative: Yes Physical Exam Triage Information Reviewed: Yes Vital Signs On Initial Exam: Initial Vitals Temp Pulse Resp BP Pulse Ox 99.1 F 89 24 135/75 96 02/21/17 04:41 02/21/17 04:41 02/21/17 04:41 02/21/17 04:41 02/21/17 04:41 Vital Signs Reviewed: Yes Appearance: Positive: Well-Appearing, No Pain Distress Skin: Positive: Warm Head/Face: Positive: Normal Head/Face Inspection Eyes: Positive: STEPH ENT: Positive: Hearing grossly normal Neck: Positive: Supple Respiratory/Lung Sounds: Positive: Breath Sounds Present Cardiovascular: Positive: RRR Abdomen Description: Positive: Nontender, Soft Bowel Sounds: Positive: Present Musculoskeletal: Positive: Strength/ROM Intact Neurological: Positive: Alert, Oriented to Person Place, Time - Catherine Coma Scale Coma Scale Total: 15 Diagnostics - Vital Signs Vital Signs Temp Pulse Resp BP Pulse Ox 02/21/17 05:29 18 02/21/17 04:41 99.1 F 89 24 135/75 96 - Laboratory Lab Results: Lab Results 02/21/17 02/21/17 Range/Units 05:13 05:13 WBC 8.4 (3.5-10.8) 10^3/ul RBC 4.44 (4.0-5.4) 10^6/ul Hgb 13.6 L (14.0-18.0) g/dl Hct 40 L (42-52) % MCV 90 (80-94) fL MCH 31 (27-31) pg MCHC 34 (31-36) g/dl RDW 13 (10.5-15) % Plt Count 376 (150-450) 10^3/ul MPV 7 L (7.4-10.4) um3 Neut % (Auto) 46.6 (38-83) % Lymph % (Auto) 37.4 (25-47) % Reynolds % (Auto) 12.1 H (1-9) % Eos % (Auto) 3.1 (0-6) % Baso % (Auto) 0.8 (0-2) % Absolute Neuts (auto) 3.9 (1.5-7.7) 10^3/ul Absolute Lymphs (auto) 3.1 (1.0-4.8) 10^3/ul Absolute Monos (auto) 1.0 H (0-0.8) 10^3/ul Absolute Eos (auto) 0.3 (0-0.6) 10^3/ul Absolute Basos (auto) 0.1 (0-0.2) 10^3/ul Absolute Nucleated RBC 0.01 10^3/ul Nucleated RBC % 0.1 Urine Color Yellow Urine Appearance Clear Urine pH 5.0 (5-9) Ur Specific [place] 1.014 (1.010-1.030) Urine Protein Negative (Negative) Urine Ketones Negative (Negative) Urine Blood Negative (Negative) Urine Nitrate Negative (Negative) Urine Bilirubin Negative (Negative) Urine Urobilinogen Negative (Negative) Ur Leukocyte Esterase Negative (Negative) Urine Glucose Negative (Negative) Result Diagrams: 02/21/17 05:13 02/21/17 05:13 Lab Statement: Any lab studies that have been ordered have been reviewed, and results considered in the medical decision making process. Course/Dx - Course Course Of Treatment: Patient is medically cleared for mental health evaluation at 0558 - Differential Dx/Clinical Impression Provider Diagnosis: Mood disorder - Physician Notifications Instructed by Provider To: Admit As Inpatient Discharge - Discharge Plan Condition: Fair Disposition: ADMITTED TO [facility] Discharge Disposition Comment: Patient to be signed out at shift change pending mental health evaluation The documentation as recorded by the Patricia cardona Alok accurately reflects the service I personally performed and the decisions made by me, John Boothe MD.
[2017-02-21] MEDS ORDERED: Al Hydrox/Mg Hydrox/Simet LIQ* 30 ML UDC PO PRN (11:51)
[2017-02-21] MEDS ORDERED: Nicotine GUM* 2 MG PO PRN (11:51)
[2017-02-21] MEDS ORDERED: Acetaminophen TAB* 325 MG PO PRN (11:51)
[2017-02-21] MEDS ORDERED: Docusate CAP* 100 MG PO PRN (11:54)
[2017-02-21] MEDS ORDERED: diPHENhydraMINE PO* 50 MG PO PRN (11:55)
--- NOTE | 2017-02-21 12:02 | ED ---
Progress - Progress Note Progress Note: pt admitted in stable condition with substance induced mood disorder - Consult/PCP Time Called: 06:00 Course/Dx - Course Course Of Treatment: Patient is medically cleared for mental health evaluation at 0558 - Diagnoses Provider Diagnoses: Mood disorder
[2017-02-21] MEDS: Nicotine Inhaler* 10 MG AMP INH PRN ×2 (13:20→20:24)
[2017-02-21] MEDS: Gabapentin CAP(*) 300 MG PO SCH ×2 (13:20→20:24)
[2017-02-21] MEDS ORDERED: Mouth Piece, Nicotine* 1 EACH CARTRIDGE ONE (13:22)
[2017-02-21] MEDS: hydrOXYzine HCL TAB* 50 MG PO PRN (14:19)
[2017-02-21] MEDS: OLANzapine TAB* 10 MG PO SCH (20:24)
--- NOTE | 2017-02-22 01:49 | HP ---
HISTORY AND PHYSICAL: DATE OF ADMISSION: 02/21/17 SUPERVISING PSYCHIATRIST: Larry Juarez MD. * (DICTATED BY DAVID COHN NP ) JUSTIFICATION FOR ADMISSION: The patient presented to the emergency room with complaints of depression and suicidal ideation. He had a plan to suicide by advertising copywriter or stab himself. He presents with recent polysubstance use including cocaine and alcohol. CHIEF COMPLAINT: "I was freaking out." HISTORY OF PRESENT ILLNESS: This is the [place] admission for this patient [place] [facility] [place], prior 2 admissions were with similar presentation in July and on 02/02/17. He presents with polysubstance use and suicidal and violent ideation. The last time he was admitted to this unit, he was referred to inpatient substance abuse treatment at [place]. He states that he did not appreciate the agency or the people who worked there. He returned to the [facility] and reunited with a female patient that he met while on this unit. He, this patient and her boyfriend engaged in cocaine and alcohol use. He reports that he traded sexual behaviors for cocaine use. In the emergency room, Jelani expressed desire to treat his trauma from the past and to be transferred to a previous substance use treatment, [facility] in [place]. Upon arrival to the unit, Jelani was pacing and visibly agitated. He was requesting Ativan from various staff members. He accepted offer of his standing gabapentin and also took hydroxyzine. After approximately an hour on the unit, he was more calm and cooperative. At the time of interview, Jelani reports that he has been using every day alcohol and drugs. He states he realized that meeting up with the person that he met during his last inpatient stay was "the toxic person" and that they were toxic for each other. He endorses anxiety and depression. He states "I am hurting, I feel like crap." He endorses decreased concentration and inability to sit still. He reports improvement from anxiety with recent dose of gabapentin and hydroxyzine. Jelani states that he has been utilizing alcohol and drugs daily since discharge from the unit on 02/09/17. He states his last use of alcohol was yesterday. His urine drug screen was positive for cocaine and alcohol, upon arrival to the emergency room was 73. Jelani now states that he wants to go back to [place] to live with his mother. He states that neither inpatient nor substance use treatment would be beneficial. He states that he does need to be in [facility] for a court date this Tuesday, this is in relation to paternity testing. Jelani denies AH, VH, paranoia, or depersonalization. He endorses mood lability. He has not been taking his prescribed medications since leaving the hospital approximately 2 weeks ago. He states concern about his sexual behavior with recent partner and wants testing for STDs. He denies active violent ideation. PAST PSYCHIATRIC HISTORY: This is Jelani's third admission to this unit, first one in July of this year and most recent from 02/02/17 to 02/09/17. According to previous records, he was hospitalized 3 times in [place] due to substance use and police escorted to the emergency room. He has a past history of bipolar disorder and alcohol and cocaine use disorders. He was discharged on gabapentin and Zyprexa in January. He has been treated at [facility] in [place] and albeit briefly, he left after a day or two. His admission to [place] proved to be a similar scenario. SUBSTANCE USE HISTORY: Jelani started drinking alcohol at age 16, which led to cocaine use. He has had numerous sequelae related to his substance use including leaving high school and being incarcerated for armed robbery. He has tried pills, amphetamines, cocaine. He reports his primary drug of choice is cocaine. TRAUMA/ABUSE HISTORY: To be determined. Although he reports a history of PTSD , this needs some further clarification. LEGAL HISTORY: Five years in detention for armed robbery, was released in 2011. PAST MEDICAL HISTORY: No active medical problem. He denies any pain or distress. He does not have a current primary care provider. MEDICATIONS: He is not currently taking any medications. ALLERGIES: No known allergies. FAMILY PSYCH HISTORY: Stepsister with bipolar disorder and suicide gestures. Father with alcohol use disorder. SOCIAL HISTORY: Jelani grew up in [place]. He primarily lived with his mother. He has 2 step siblings. He does not have contact with anyone in his family other than his mother. He is currently homeless. He left high school in 10th grade and later obtained a GED. 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 He is not currently dating, single, does not have children. He has a pending DNA paternity court date this 02/25/17, in [facility]. REVIEW OF SYSTEMS: Constitutional: Negative. Fever: Negative. All other systems reviewed and are negative. PHYSICAL EXAMINATION VITAL SIGNS: Temperature 97.9, pulse 66, respirations 16, O2 sat of 99%, blood pressure 126/76. HEENT: Head and face: Normal head and face inspection. Eyes: Positive, normal EOMI. Conjunctivae clear. ENT: Positive. Hearing grossly normal. NECK: Positive supple. RESPIRATORY: Lung sounds positive breath sounds, auscultation clear. CARDIOVASCULAR: Positive normal RRR. Pulses present on upper and lower extremities. ABDOMEN: Positive nontender, soft. Bowel sounds present. MUSCULOSKELETAL: Normal strength. ROM intact. NEUROLOGICAL: Positive normal alert and oriented x3. SKIN: Warm, dry. Adequate perfusion. LABORATORY DATA: From the emergency room, H and H 13.6 and 40. CBC otherwise unremarkable. CMP unremarkable. TSH 2.2. Urinalysis within normal limits. Toxicology: Serum alcohol 73. Salicylates and acetaminophen negative. Urine drug screen positive for cocaine. HIV 1 and 2 antibody nonreactive. MENTAL STATUS EXAM: Jelani is a tall white male with muscular build. He appears stated age. He is casually groomed. His hair is short with a buzz cut. He is wearing his own clothing. He is alert and oriented x3. His posture is slumped. His head is down. His eye contact is fair. Speech is soft and normal rate and rhythm. Concentration is poor. His memory is 3/3. His mood is "I am hurting." His affect is restricted. Thought is logical, coherent. Thought content is positive for suicidal ideation. He denies paranoia or thought broadcasting. He denies HI or . His insight is fair and this is his 3rd hospitalization this year and 2 within the same month. His judgement is poor. Impulse control is poor. Fund of knowledge is fair. IMPRESSION: Jelani is a 31-year-old male with acute cocaine and alcohol abuse disorder. He was diagnosed with bipolar disorder by this racebook writer during his last admission. This has manifested in substance use and legal consequences. Jelani is agreeable to treatment on the mental health unit for psychiatric stabilization and referral to outpatient services. He requires emergency hospitalization due to serious risk for harm for himself. His desire to obtain treatment for substance use disorder seems to be fleeting. ADMISSION DIAGNOSES: Marina I: Cocaine use disorder, severe with induced psychotic symptoms and mood symptoms. Alcohol use disorder with induced mood symptoms and bipolar 2 disorder. Marina II: Consider antisocial personality traits. Marina III: No active medical problems. Marina IV: Severe psychosocial stressors related to impact of substance use. xis V: 35. TREATMENT PLAN: Admit to the adult psychiatric unit on voluntary status. Code status is full. Safety checks every 15 minutes. Continue admission medicines that were initiated during his last inpatient stay including gabapentin and Zyprexa. Refrain from use of controlled substances. Initiate supportive milieu and individual and group psychotherapy. Continue to monitor for mood and thought content. Per patient's request, obtain STD testing including hepatitis panel and gonorrhea and chlamydia. DISCHARGE PLAN: Will involve coordination with appropriate aftercare and his mother. Estimated length of stay is 2 to 3 days. DAVID COHN NP [id number]/CPS #: [id number] HERBIE
[2017-02-22] MEDS: Gabapentin CAP(*) 300 MG PO SCH ×3 (08:58→20:43)
[2017-02-22] MEDS: hydrOXYzine HCL TAB* 50 MG PO PRN (14:51)
--- NOTE | 2017-02-22 15:21 | PN ---
Subjective - Subjective Service Type: 20934 Hosp care 25 min moderate complexity Subjective: Patient denies anxiety, depressed mood or SI/. He states he slept well last night and feels rested. He denies akathesia or side effects. Patient states desire to be discharged and to return to live with his mother. He wants to go to [facility] and resolve outstanding legal issues. He states he has to go to the usp and pharmacy picking tech proof that he submitted a DNA test and take this to the court house. He then hopes to take a bus to return to [place]. His father lives in [place] and he is not in contact with him currently. He tells this field underwriter that his mother will wire him money for a bus ticket. He gives contact numbers and reports that one of them is getting shut off today: [phone], . This field underwriter phoned his mother, Margi Forbes, at [phone]. She states she is willing to have him return to live with her. She states she wants to be able to help him but cannot afford to assist him financially. This field underwriter encouraged her to promote his attendance with mental health care and to refrain from giving him money. Objective - Appearance Appearance: Well Developed/Nourished Dysmorphic Features: No Hygiene: Normal Grooming: Well Kept - Behavior Psychomotor Activities: Normal Exhibits Abnormal Movement: No - Attitude and Relatedness Attitude and Relatedness: Cooperative Eye Contact: Good - Speech Quality: Unpressured Latencies: Normal Quantity: Appropriate - Mood Patient's Decription of Mood: "Okay" - Affect Observed Affect: Good Affect Consistent with: Euthymia - Thought Process Patient's Thought Process: Coherent, Goal Directed, Circumstantial Thought Content: No Passive Wish, No Suicidal Planning, No Homicidal Ideation, No Paranoid Ideation - Sensorium Experiencing Hallucinations: No, Sensorium is Clear Type of Hallucinations: Visual: No, Auditory: No, Command: No - Level of Consciousness Level of Consciousness: Alert Orientation: Yes Intact, Yes Orientated to Time, Yes Orientated to Place, Yes Orientated to Person - Impulse Control Impulse Control: Tenuous - Insight and Judgement Insight and Judgement: Poor - Group Participation Particating in Group Activities: Yes - Medication Management Medication Management Adherence: Yes Assessment - Assessment Merits Inpatient Hospitalization: For Immediate Safety, Pending Safe DC Plan Inpatient DSM-IV Dx: bipolar II d/o, most recent episode manic; alcohol use d/o ; cocaine use d/o; consider antisocial personality traits Clinical Impression: Jourdan is a 31yo male with bipolar disorder and cocaine and alcohol abuse. This is his second admission to this unit in 30 days after leaving the inpatient rehab to which he was referred. He declines offer of further referrals and states intent to return to his mother's home in [facility]. He is at high risk for continued substance use and poor adherence to psychopharmacology and mental health treatment. Plan - Plan Treatment Plan: Name: JOURDAN FORBES Birthdate: 1985 [id number] Jourdan declines offer of referral to substance use treatment. He expresses desire to return to live with his mother in [place]. He agrees to continue current medications and declines offer for pharmacology for alcohol dependence. Continue to treat while securing transportation plans and mental health outpatient appointments. Pending results from GC urine test. Continued Medication Management: Continue Outpt Medication Medications: Current Medications Acetaminophen (Tylenol Tab*) 650 mg PO Q4H PRN PRN Reason: for pain; or Temp >101 F Al Hydrox/Mg Hydrox/Simethicone (Maalox Plus*) 30 ml PO Q4H PRN PRN Reason: INDIGESTION Diphenhydramine HCl (Benadryl Po*) 50 mg PO BEDTIME PRN PRN Reason: INSOMNIA Docusate Sodium (Colace Cap*) 100 mg PO BID PRN PRN Reason: CONSTIPATION Gabapentin (Neurontin Cap(*)) 600 mg PO TID [facility] Last Admin: 02/22/17 13:21 Dose: 600 mg Hydroxyzine HCl (Atarax Tab*) 50 mg PO Q6H PRN PRN Reason: ANXIETY Last Admin: 02/22/17 14:51 Dose: 50 mg Nicotine (Nicotine Inhaler*) 10 mg INH Q2H PRN PRN Reason: CRAVING Last Admin: 02/21/17 20:24 Dose: 10 mg Nicotine Polacrilex (Nicotine Gum*) 2 mg PO Q2H PRN PRN Reason: CRAVING Olanzapine (Zyprexa Tab*) 10 mg PO BEDTIME MARIA GUADALUPE Last Admin: 02/21/17 20:24 Dose: 10 mg - Discharge Plan Discharge Plan: Outpatient Follow Up
[2017-02-22] MEDS: Nicotine Inhaler* 10 MG AMP INH PRN (15:41)
[2017-02-22] MEDS: OLANzapine TAB* 10 MG PO SCH (20:43)
[2017-02-23 07:49] VITALS: BP 120/74
[2017-02-23] MEDS: Gabapentin CAP(*) 300 MG PO SCH (09:16)
--- NOTE | 2017-02-24 04:27 | DS ---
DISCHARGE SUMMARY: DATE OF ADMISSION: 02/21/17 DATE OF DISCHARGE: 02/23/17 DISCHARGE DIAGNOSES: [place] I: Cocaine-induced depressive disorder; cocaine use disorder; alcohol use disorder; bipolar 2 disorder by history. [place] II: Rule out antisocial personality traits. [place] III: No active medical problems. [place] IV: Severe, primary support and housing stressors. [place] V: At the time of admission was 37 and at the time of discharge was 62. CONDITION AT THE TIME OF DISCHARGE: Stable. The patient is calm, cooperative. He has been safe on all checks. He is taking his medications and he is agreeable with outpatient treatment in the community. The acute stressor leading to this hospitalization was his recent relapse on cocaine. This has been mitigated in that he is agreeable with outpatient substance abuse treatment in the community. Another acute stressor was his homelessness and this has been resolved as we have connected with his mother in [place], [place], and she is agreeable with allowing Jelani to stay with her. The patient is agreeable with these plans and seems optimistic about maintaining his sobriety in the community. He steadfastly denied suicidal or homicidal ideations. Some residual risk remains given the fact that he has had multiple relapses on cocaine and alcohol in the past. However, the patient is expressing at this time that he wants to continue working on this and is preferring to do this in the outpatient setting. MENTAL STATUS EXAMINATION: At the time of discharge, the patient is a young white male with close cropped hair, is doubly mcneal. He is wearing a T-shirt and sweat pants. He is clean, well groomed, calm, cooperative, makes good eye contact. Speech has normal rate, tone, and volume. Mood is euthymic with full affect. Thought process is linear and goal directed. Thought content is significant for his desire to leave the state and return to reside in [place] with his mother. He is denying suicidal or homicidal ideations. He denies auditory or visual hallucinations. Insight and judgment are fair given his willingness to follow up with outpatient services. Cognitively, he is awake and alert with what would appear to be an average intellect. DISCHARGE INSTRUCTIONS: To the patient are as follows: A. Medications: 1. He takes nicotine gum 2 mg every 2 hours p.r.n. for smoking cessation. 2. Neurontin 600 mg p.o. t.i.d. 3. Colace 100 mg p.o. b.i.d. as a p.r.n. for constipation. 4. Atarax 50 mg p.o. q.6 hours p.r.n. as needed for anxiety. 5. Benadryl 50 mg p.o. q.h.s. p.r.n. for insomnia. 6. Olanzapine 10 mg p.o. q.h.s. 7. Nicotine inhaler 10 mg inhaled every 2 hours as a p.r.n. for smoking cessation. B. Diet: Regular. C. Activities: As tolerated. The patient is actively trying to quit smoking cigarettes and for this reason, he is accepting continued treatment with both nicotine gum and nicotine inhaler in hopes of successfully quitting. There are no laboratory or diagnostic studies pending at the time of discharge. HOSPITAL COURSE: Part A. Reason for admission: The patient is a 31-year-old single white homeless male with a history of cocaine and alcohol abuse as well as putative bipolar type 2, who was just discharged from our unit on 02/02/17, who now returns endorsing suicidal and violent ideations. The last time he was admitted to our unit earlier in January, he was referred to an inpatient substance abuse treatment facility at [facility]. He states that he did not appreciate the agency or the people who worked there. He returned to the [facility] and reunited with a female patient that he had met while on our unit. He reports that along with this patient and her boyfriend, they engaged in cocaine and alcohol use. He reports that he traded sexual favors to the couple for the substances in return. In our emergency room, he expressed desire to treat his trauma from the past and to be transferred to a previous substance abuse treatment facility called [facility] in [place], [place]. Upon arrival to our unit, Jelani was pacing and visibly agitated. He was requesting Ativan from various staff members, although he did accept an offer of standing gabapentin and also took hydroxyzine. After approximately an hour on the unit, he was more calm and cooperative. At the time of the interview, Jelani reported that he had been using alcohol every day as well as drugs since his release from [facility]. He states that he realized that meeting up with the person that he had been on the inpatient unit with was "toxic situation" and that this was not a relationship that he wanted to continue. He did report improvements from anxiety with a recent dose of gabapentin and hydroxyzine. He does indicate that he had received neither inpatient nor substance abuse treatment since being discharged from [facility]. The patient also endorsed a concern about the possibility of having contracted an STD. Part B. Psychiatric treatment rendered: The patient was admitted to the unit where he was placed on q.15-minute checks for his own safety. All of his previous medications were resumed including gabapentin, olanzapine, hydroxyzine , and Benadryl. We also used p.r.n. clonidine for relief of anxiety. We did check his status for hepatitis A, B, and C as well as HIV and he was nonreactive for all of these STDs. He showed no evidence of acute alcohol or cocaine withdrawal while admitted. Progressively, he became more stable. He was able to go outside for staff pass and tolerated that very well. He was calm and pleasant with both staff and peers, attending groups and being active on the milieu setting. We were able to get in touch with his mother, whose name is Margi Swanson, in [place], [place], and she indicated that she was supportive of discharge and that he could return to [place] to stay with her. We were able to hook him up with outpatient substance abuse and mental health services at the [facility] in [place], [place]. The patient requested a cab at discharge to [place], so that he could resolve a legal issue with the [facility]. Thereafter, his plan was to receive a bus ticket from his mother to return to [place], [place]. The patient has steadfastly denied suicidal or homicidal ideations throughout this hospitalization. He has been safe on all checks and we feel that it would be appropriate to treat him in a less restrictive setting at this time. [id number]/[facility] #: [id number] HERBIE
== END 2017-02-23 11:20 | disposition home or self-care (01) | DRG 774 ==
LOC: ED 04:37 → BSU 12:46
PROVIDERS: ADMIT Psychiatry & Neurology Psychiatry; ATTEND Psychiatry & Neurology Psychiatry
DX: F14.24 Cocaine dependence with cocaine-induced mood disorder (principal); R45.851 Suicidal ideations; F41.9 Anxiety disorder, unspecified; F31.9 Bipolar disorder, unspecified; F43.10 Post-traumatic stress disorder, unspecified; F17.210 Nicotine dependence, cigarettes, uncomplicated; R40.2412 Glasgow coma scale score 13-15, at arrival to emergency department; F10.20 Alcohol dependence, uncomplicated; Y90.3 Blood alcohol level of 60-79 mg/100 ml; Z81.1 Family history of alcohol abuse and dependence; Z81.8 Family history of other mental and behavioral disorders; Z59.0 Homelessness
CPT/HCPCS: 36415; 80053; 80074; 80307; 80320; 80329; 81003; 84443; 85025; 86703; 87491; 87591; 99222; 99232; 99238; A9270-GY; G0480